=== PATIENT | female | born 2000 | race Caucasian/White ===

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

== ENCOUNTER 2020-08-02 12:57 | Outpatient (CLI) | payer MEDICAID | END 2020-08-02 12:58 | disposition home or self-care (01) | LOC: COV 12:57 | PROVIDERS: ATTEND Family Medicine | DX: U07.1 COVID-19 (principal) ==

== ENCOUNTER 2020-12-23 14:48 | Observation (INO) | payer MEDICAID ==
--- NOTE | 2020-12-23 15:14 | ED Physician Documentation ---
History of Present Illness - Stated complaint Stated Complaint: LETHARGY,DIZZY,FAST HR - Chief complaint Chief Complaint: Neuro - Additonal information Additional information: 20-year-old female presents emergency department for evaluation of melanoma syncope tachycardia and fatigue. She reports that for the last 3 days she has been having black stools. This morning she did faint. She was seen in the local walk-in clinic where screening hemoglobin was shown to be 5.7. Patient denies a history of heavy menstrual cycles. No menstrual cycle for 3 months. No history of previous GI bleeding. Does not take NSAIDs daily. No excessive alcohol use. Review of Systems Constitutional: denies: Fever, Chills Eyes: reports: Reviewed and negative Ears: reports: Reviewed and negative Nose: reports: Reviewed and negative Throat: reports: Reviewed and negative Cardiac: denies: Chest pain / pressure, Palpitations Respiratory: denies: Dyspnea GI: reports: Bloody / black stool. denies: Abdominal Pain, Nausea, Vomiting : denies: Dysuria, Frequency, Hesitancy Skin: denies: Rash, Lesions PD PAST MEDICAL HISTORY - Past Medical History Cardiovascular: None Respiratory: None Neuro: None Endocrine/Autoimmune: None GI: None ENGLISH TUTOR: None : None HEENT: None Psych: None Musculoskeletal: None - Past Surgical History Past Surgical History: No - Present Medications Home Medications: Ambulatory Orders Medication Instructions Recorded Confirmed Famotidine [Pepcid] 20 mg PO BID #60 tablet 04/26/18 Ondansetron Odt [Zofran] 4 mg TL Q6H PRN #10 tablet 04/26/18 - Allergies Allergies/Adverse Reactions: Allergies Allergy/AdvReac Type Severity Reaction Status Date / Time Latex, Natural Rubber Allergy Hives Verified 12/23/20 14:58 nickel Allergy Hives Verified 12/23/20 14:58 - Social History Does the pt smoke?: No Smoking Status: Never smoker Does the pt drink ETOH?: No Does the pt have substance abuse?: No - Immunizations Immunizations are current?: Yes PD ED PE EXPANDED - General General: Alert. No: No acute distress, Well developed/nourished - Neck Neck: Supple w/out meningeal sx. No: Adenopathy - Cardiac Cardiac: Tachy, Radial strong equal, Pedal strong equal, Cap refill < 2 sec. No: Murmur Present - Respiratory Respiratory: Clear to ausultation kuldeep. No: Distress, Labored - Abdomen Abdomen: Normal Bowel sounds. 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 No: Petecchiae, Purpura - Neuro Neuro: Alert and Oriented X 3, CNII-XII intact. No: Confused, Disoriented Results - Vitals Vitals: Vital Signs - 24 hr 12/23/20 12/23/20 14:55 16:04 Temperature 36.7 C 36.8 C Heart Rate 126 H 94 Respiratory 16 20 Rate Blood Pressure 115/62 105/61 O2 Saturation 100 100 Oxygen O2 Source Room air - EKG (time done) 1503 Rate: Rate (enter#) (109) Rhythm: Sinus tachycardia [place]: Normal Intervals: Normal MO QRS: Normal Ischemia: Normal ST segments Compare to prior EKG: Old EKG unavailable Computer interpretation: Agree with computer - Labs Labs: Laboratory Tests 12/23/20 12/23/20 12/23/20 15:01 15:01 15:01 WBC 4.8 RBC 2.24 L Hgb 6.1 L* Hct 18.8 L* MCV 83.9 MCH 27.2 MCHC 32.4 RDW 18.2 H Plt Count 388 MPV 9.5 Neut # (Auto) 3.1 Lymph # (Auto) 0.7 L [place] # (Auto) 0.7 Eos # (Auto) 0.1 Baso # (Auto) 0.1 Absolute Nucleated RBC 0.00 Nucleated RBC % 0.0 Sodium 139 Potassium 4.1 Chloride 106 Carbon Dioxide 26 Anion Gap 7.0 BUN 15 Creatinine 0.5 Estimated GFR (MDRD) 157 Glucose 96 Calcium 8.7 Iron 25 L TIBC 337 % Saturation 7 L Transferrin 241 Total Bilirubin 0.4 AST 34 ALT 30 Alkaline Phosphatase 45 Total Protein 5.9 L Albumin 3.3 Globulin 2.6 Albumin/Globulin Ratio 1.3 Lipase 32 HCG, Quant Blood Type O POSITIVE Antibody Screen NEGATIVE Crossmatch IS Only See Detail 12/23/20 15:01 WBC RBC Hgb Hct MCV MCH MCHC RDW Plt Count MPV Neut # (Auto) Lymph # (Auto) [place] # (Auto) Eos # (Auto) Baso # (Auto) Absolute Nucleated RBC Nucleated RBC % Sodium Potassium Chloride Carbon Dioxide Anion Gap BUN Creatinine Estimated GFR (MDRD) Glucose Calcium Iron TIBC % Saturation Transferrin Total Bilirubin AST ALT Alkaline Phosphatase Total Protein Albumin Globulin Albumin/Globulin Ratio Lipase HCG, Quant < 0.60 Blood Type Antibody Screen Crossmatch IS Only PD MEDICAL DECISION MAKING - ED course Complexity details: reviewed results, re-evaluated patient, d/w patient ED course: 20-year-old female presents the emergency department for evaluation of syncope feeling lightheaded melena for the last 3 days. She was noted to have significant anemia at an outpatient clinic this afternoon and was therefore referred to the emergency department. Here she does have an hemoglobin of 6.1. no thrombocytopenia. I did attempt a stool guaiac but her rectal vault was empty. Screening labs do indicate some mild iron deficiency however this would not explain the acute hemoglobin loss. I discussed this case with And show to her admitting hospitalist to bring agrees to bring her in on an observation status. I have initialized the first unit of PRBC transfusion here in the emergency department Departure - Departure Disposition: ED Place in Observation Clinical Impression: Anemia Qualifiers: Anemia type: unspecified type Qualified Code(s): D64.9 - Anemia, unspecified Syncope Qualifiers: Syncope type: unspecified Qualified Code(s): R55 - Syncope and collapse Condition: Stable Record reviewed to determine appropriate education?: Yes
[2020-12-23 15:24] LABS: BASOPHILS # (AUTO) 0.1 10^3/uL (0.0-0.1); BASOPHILS % (AUTO) 1.1 %; EOSINOPHILS # (AUTO) 0.1 10^3/uL (0.0-0.7); EOSINOPHILS % (AUTO) 2.3 %; LYMPHOCYTES # (AUTO) 0.7 10^3/uL (1.5-3.5); LYMPHOCYTES % (AUTO) 15.3 %; MEAN CORPUSCULAR HEMOGLOBIN 27.2 pg (27.0-31.0); MEAN CORPUSCULAR HGB CONC 32.4 g/dL (32.0-36.0); MEAN CORPUSCULAR VOLUME 83.9 fL (81.0-99.0); MEAN PLATELET VOLUME 9.5 fL (7.9-10.8); MONOCYTES # (AUTO) 0.7 10^3/uL (0.0-1.0); MONOCYTES % (AUTO) 15.1 %; NEUTROPHILS # (AUTO) 3.1 10^3/uL (1.5-6.6); NEUTROPHILS % (AUTO) 65.8 %; PLT - PLATELET COUNT 388 10^3/uL (130-450); RED BLOOD COUNT 2.24 10^6/uL (4.20-5.40); RED CELL DISTRIBUTION WIDTH 18.2 % (12.0-15.0); WHITE BLOOD COUNT 4.8 x10^3/uL (4.8-10.8)
[2020-12-23 15:30] LABS: HGB - HEMOGLOBIN 6.1 g/dL (12.0-16.0)
[2020-12-23 15:31] LABS: HCT - HEMATOCRIT 18.8 % (37.0-47.0)
[2020-12-23 16:02] LABS: ALBUMIN 3.3 g/dL (3.2-5.5); ALBUMIN/GLOBULIN RATIO 1.3 (1.0-2.2); BILIRUBIN,TOTAL 0.4 mg/dL (0.2-1.0); CALCIUM 8.7 mg/dL (8.5-10.3); CREATININE 0.5 mg/dL (0.4-1.0); POTASSIUM 4.1 mmol/L (3.5-5.0); TOTAL PROTEIN 5.9 g/dL (6.7-8.2)
[2020-12-23] MEDS ORDERED: SODIUM CHLORIDE FLUSH 0.9% 10 ML SYRINGE IVP PRN (16:10)
[2020-12-23] MEDS ORDERED: ONDANSETRON 4 MG/2 ML VIAL IVP PRN (16:10)
[2020-12-23 16:11] LABS: BILIRUBIN,URINE NEGATIVE (NEGATIVE); GLUCOSE, URINE (UA) NEGATIVE (NEGATIVE); KETONES,URINE (UA) NEGATIVE (NEGATIVE); LEUKOCYTE ESTERASE, URINE NEGATIVE (NEGATIVE); NITRITE,URINE NEGATIVE (NEGATIVE); OCCULT BLOOD,URINE NEGATIVE (NEGATIVE); PH,URINE 5.5 PH (5.0-7.5); PROTEIN,URINE NEGATIVE (NEGATIVE); UROBILINOGEN,URINE 0.2 (NORMAL) E.U./dL (NORMAL)
[2020-12-23 16:16] LABS: CLARITY,URINE CLEAR (CLEAR)
--- NOTE | 2020-12-23 16:20 | HISTORY & PHYSICAL EXAMINATION ---
Chief Complaint - Chief Complaint Chief Complaint: black tarry stools, anemia History of Present Illness - Admitted From Admitted From:: [facility] ED - History Obtained From Records Reviewed: yes History obtained from: patient - History of Present Illness HPI Comment/Other: Alvarado is a 20-year-old female with no significant medical history who presented to the ED today with anemia. She has been dizzy and fatigue for the past 2 days so she went to a Walk in Clinic Was advised to go to the emergency department for further work-up. She also reports passing out this morning when she woke up. It was a witnessed event. She did not hit her head. She has been having black tarry stools for the past 3 days. She denies previous occurrence. She does not use NSAIDs regularly and does not consume alcohol. She denies having a menstrual period for few months now. In the ED work-up included a CBC which showed a hemoglobin of 6.1. She denied chest pain, dyspnea, abdominal pain, nausea, vomiting, fever or chills. She reports heartburn. As a result of her presentation, she is being admitted for further treatment and work-up. 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 Social History Notes: She lives with her significant other. She vapes. She also uses marijuana. She does not consume alcohol. She is independent of activities of daily living. - POLST Patient has POLST: No POLST Status: Full Code Meds/Allgy - Home Medications Home Medications: Ambulatory Orders Medication Instructions Recorded Confirmed Famotidine [Pepcid] 20 mg PO BID #60 tablet 04/26/18 Ondansetron Odt [Zofran] 4 mg TL Q6H PRN #10 tablet 04/26/18 - Allergies Allergies/Adverse Reactions: Allergies Allergy/AdvReac Type Severity Reaction Status Date / Time Latex, Natural Rubber Allergy Hives Verified 12/23/20 14:58 nickel Allergy Hives Verified 12/23/20 14:58 Review of Systems - Constitutional Constitutional: reports: Fatigue, Weakness. denies: Fever, Chills, Poor appetite - Eyes Eyes: denies: Pain, Vision loss - Ears, Nose & Throat Ears, Nose & Throat: denies: Ear pain, Sore throat - Cardiovascular Cariovascular: reports: Lightheadedness, Syncope. denies: Irregular heart rate, Palpitations, Chest pain, Edema, Exertional dyspnea, Decr. exercise tolerance - Respiratory Respiratory: denies: Cough, Sputum production, Wheezing, SOB at rest, SOB with exertion - Gastrointestinal Gastrointestinal: reports: Black stools. denies: Abdominal pain, Abdominal distention, Constipation, Diarrhea, Nausea, Vomiting, Coffee grounds emesis, Reflux/heartburn, Poor appetite - Genitourinary Genitourinary: denies: Dysuria, Frequency, Urgency, Hematuria, Incontinence, Flank pain - Musculoskeletal Musculoskeletal: denies: Muscle pain, Back pain, Muscle aches, Stiffness - Integumentary Integumentary: denies: Rash, Pruritis, Lesions - Neurological Neurological: reports: General weakness. denies: Focal weakness, Headache - Psychiatric Psychiatric: denies: Depression, Anxiety - Endocrine Endocrine: denies: Polyuria, Polydypsia - Hematologic/Lymphatic Hematologic/Lymphatic: reports: Anemia. denies: Bruising, Petechiae Prior Level of Functionality: Patient is normally independent of activities of daily living Exam - Vital Signs Vital Signs: Vital Signs x48h Temp Pulse Resp BP Pulse Ox 12/23/20 16:04 36.8 C 94 20 105/61 100 12/23/20 14:55 36.7 C 126 H 16 115/62 100 - Physical Exam General Appearance: positive: Alert. negative: No acute distress Eyes Bilateral: positive: PERRL, EOMI ENT: positive: No signs of dehydration Neck: positive: No JVD, Trachea midline Respiratory: positive: Chest non-tender, No respiratory distress, Breath sounds nml. negative: Wheezes, Rales, Rhonchi Cardiovascular: positive: Regular rate & rhythm, No murmur Abdomen: positive: Non-tender, No organomegaly, Nml bowel sounds, No distention. negative: Guarding, Rebound Back: positive: Nml inspection Skin: positive: Color nml, No rash, Warm, Dry Extremities: positive: Non-tender, Full ROM, Nml appearance, No pedal edema Neurologic/Psychiatric: positive: Oriented x3, Motor nml, Mood/affect nml Conclusion/Plan - Problem List (1) Anemia Conclusion/Plan: Likely secondary to upper GI bleed. Patient has been having dark tarry stools for a period of time. Hemoglobin today was 6.1. We will transfuse 2 units of packed red blood cells. Clear liquid diet. N.p.o. after midnight. General surgery: Dr. Nath consulted for possible EGD. Protonix 40 mg IV twice daily. Iron level 25. TIBC 337. Percentage saturation 7. Transferrin 241. Patient would need supplemental iron upon discharge. Qualifiers: Anemia type: unspecified type Qualified Code(s): D64.9 - Anemia, unspecified (2) Upper GI bleed Conclusion/Plan: Suspected. Etiology undetermined. Patient denied use of NSAIDs or heavy alcohol con sumption. Patient has been having dark tarry stools for a period of time. Hemoglobin today was 6.1. We will transfuse 2 units of packed red blood cells. Clear liquid diet. N.p.o. after midnight. General surgery: Dr. Nath consulted for possible EGD. Protonix 40 mg IV twice daily. - Lab Results Fish Bones: 12/23/20 15:01 12/23/20 15:01 Core Measures - Anticipated LOS I expect patient to be DC'd or transferred within 96 hours.: Yes - DVT/VTE - Prophylaxis VTE/DVT Device ordered at admit?: Yes VTE/DVT Prophylaxis med ordered at admit?: No
[2020-12-23] MEDS: SODIUM CHLORIDE FLUSH 0.9% 10 ML SYRINGE IVP SCH (17:31)
[2020-12-23] MEDS: PANTOPRAZOLE 40 MG VIAL IVP SCH ×2 (17:31→21:50)
[2020-12-23 19:47] LABS: B. PARAPERTUSSIS- RESP PCR PAN NOT DETECTED; B. PERTUSSIS- RESP PCR PANEL NOT DETECTED; C. PNEUMONIAE- RESP PCR PANEL NOT DETECTED; CORONAVIRUS 229E-RESP PCR NOT DETECTED; CORONAVIRUS HKU1-RESP PCR NOT DETECTED; CORONAVIRUS NL63-RESP PCR NOT DETECTED; CORONAVIRUS OC43-RESP PCR NOT DETECTED; HUMAN METAPNEUMOVIRUS NOT DETECTED; INFLUENZA A- RESP PCR PANEL NOT DETECTED; INFLUENZA B - RESP PCR PANEL NOT DETECTED; M. PNEUMONIAE- RESP PCR PANEL NOT DETECTED; PARAINFLUENZA VIRUS 1 NOT DETECTED; PARAINFLUENZA VIRUS 2 NOT DETECTED; PARAINFLUENZA VIRUS 3 NOT DETECTED; PARAINFLUENZA VIRUS 4 NOT DETECTED; RHINOVIRUS/ENTEROVIRUS NOT DETECTED; RSV- RESP PCR PANEL NOT DETECTED; SARS-CoV-2 -RESP PCR PANEL NOT DETECTED
[2020-12-23] MEDS: SODIUM CHLORIDE 0.9% 1,000 ML IV SCH (21:50)
[2020-12-24] MEDS: SODIUM CHLORIDE FLUSH 0.9% 10 ML SYRINGE IVP SCH ×3 (00:18→17:25)
[2020-12-24 05:21] LABS: BASOPHILS % (AUTO) 1.1 %; EOSINOPHILS # (AUTO) 0.1 10^3/uL (0.0-0.7); HCT - HEMATOCRIT 24.1 % (37.0-47.0); HGB - HEMOGLOBIN 7.8 g/dL (12.0-16.0); LYMPHOCYTES # (AUTO) 0.8 10^3/uL (1.5-3.5); LYMPHOCYTES % (AUTO) 23.6 %; MEAN CORPUSCULAR HEMOGLOBIN 25.6 pg (27.0-31.0); MEAN CORPUSCULAR HGB CONC 32.4 g/dL (32.0-36.0); MEAN PLATELET VOLUME 9.4 fL (7.9-10.8); MONOCYTES # (AUTO) 0.5 10^3/uL (0.0-1.0); MONOCYTES % (AUTO) 13.9 %; NEUTROPHILS % (AUTO) 57.1 %; PLT - PLATELET COUNT 290 10^3/uL (130-450); RED BLOOD COUNT 3.05 10^6/uL (4.20-5.40); RED CELL DISTRIBUTION WIDTH 18.3 % (12.0-15.0); WHITE BLOOD COUNT 3.5 x10^3/uL (4.8-10.8)
[2020-12-24 05:31] LABS: CREATININE 0.4 mg/dL (0.4-1.0); POTASSIUM 3.8 mmol/L (3.5-5.0)
--- NOTE | 2020-12-24 07:34 | PROVIDER PROGRESS NOTE ---
Assessment/Plan - Problem List (1) Anemia Qualifiers: Anemia type: unspecified type Qualified Code(s): D64.9 - Anemia, unspecified - Current Meds Current Meds: Current Medications Generic Name Dose Route Start Last Admin Trade Name Freq PRN Reason Stop Dose Admin Sodium Chloride 1,000 mls @ 100 mls/hr 12/23/20 17:00 12/23/20 21:50 Normal Saline 0.9% IV 100 mls/hr .Q10H LUCÍA Administration Pantoprazole Sodium 40 mg 12/23/20 16:14 12/23/20 21:50 Pantoprazole 40 Mg Vial IVP 40 mg BID LUCÍA Administration Sodium Chloride 10 ml 12/23/20 16:10 12/23/20 22:05 Sodium Chloride Flush 0.9% 10 Ml Syringe IVP 10 ml PRN PRN Administration NEEDED PER PROVIDER ORDERS Sodium Chloride 10 ml 12/23/20 17:00 12/24/20 00:18 Sodium Chloride Flush 0.9% 10 Ml Syringe IVP 10 ml 0100,0900,1700 LUCÍA Administration - Lab Result Fish Bone Diagrams: 12/24/20 05:14 12/24/20 05:14 - Additional Planning My Orders: My Active Orders 12/23/20 16:10 Activity Orders [RC] Q2HR IO [RC] IOSHIFT Initiate Bowel Care Protocol [RC] .protocol Initiate Line Care Protocol [RC] QSHIFT Initiate Personal Care Protoco [RC] .protocol Oxygen Therapy [RC] .PRN Telemetry- [RC] Q4HR Vital Signs [RC] Q4HR Ondansetron Inj [Zofran Inj] 4 mg IVP Q6HR PRN Sodium Chloride Flush 0.9% [Normal Saline Flush 0.9%] 10 ml IVP PRN PRN Code Status [OTHERS] Routine Condition of Patient [OTHERS] Routine DVT Prophylaxis [OTHERS] Routine 12/23/20 16:13 SCDs [RC] QSHIFT 12/23/20 16:14 Pantoprazole [Protonix] 40 mg IVP BID 12/23/20 16:16 Consult [General Surgery Consult] [CONS] Routine 12/23/20 17:00 Sodium Chloride 0.9% [Normal Saline 0.9%] 1,000 ml IV 100 mls/hr Sodium Chloride Flush 0.9% [Normal Saline Flush 0.9%] 10 ml IVP 0100,0900,1700 12/24/20 00:01 NPO except Meds [DIET] 12/24/20 13:00 CBC - COMP BLD CT W/AUTO DIFF [HEME] Timed 12/25/20 05:00 BMP - BASIC METABOLIC PANEL [CHEM] DAILYLAB CBC - COMP BLD CT W/AUTO DIFF [HEME] DAILYLAB 12/26/20 05:00 BMP - BASIC METABOLIC PANEL [CHEM] DAILYLAB CBC - COMP BLD CT W/AUTO DIFF [HEME] DAILYLAB Objective Vital Signs: Vital Signs - 24 hr 12/23/20 12/23/20 12/23/20 14:55 16:04 16:26 Temperature 36.7 C 36.8 C 36.6 C Heart Rate 126 H 94 99 Heart Rate [ Brachial] Respiratory 16 20 24 Rate Blood Pressure 115/62 105/61 105/61 Blood Pressure [Right Brachial artery] O2 Saturation 100 100 12/23/20 12/23/20 12/23/20 16:38 16:45 17:31 Temperature 36.7 C 36.7 C 36.6 C Heart Rate 95 99 Heart Rate [ 93 Brachial] Respiratory 20 16 18 Rate Blood Pressure 104/53 L 104/54 L Blood Pressure 107/52 L [Right Brachial artery] O2 Saturation 100 12/23/20 12/23/20 12/23/20 18:36 18:56 19:11 Temperature 36.7 C 36.9 C 36.8 C Heart Rate 99 79 88 Heart Rate [ Brachial] Respiratory 17 18 18 Rate Blood Pressure 99/43 L 109/51 L 99/52 L Blood Pressure [Right Brachial artery] O2 Saturation 12/23/20 12/23/20 12/24/20 19:45 21:58 00:20 Temperature 36.7 C 36.7 C 36.5 C Heart Rate 88 79 Heart Rate [ 76 Brachial] Respiratory 18 17 18 Rate Blood Pressure 102/47 L Blood Pressure 96/46 L [Right Brachial artery] O2 Saturation 100 99 12/24/20 05:00 Temperature 36.4 C L Heart Rate Heart Rate [ 64 Brachial] Respiratory 16 Rate Blood Pressure Blood Pressure 98/55 L [Right Brachial artery] O2 Saturation 99 Oxygen O2 Source Room air I&O (Last 24 Hrs): Intake and Output Totals x24h 12/22/20 12/23/2012/24/21 23:59 23:59 23:59 Intake Total 1070 Balance 1070 - Results Results: Laboratory Results WBC 3.5 x10^3/uL (4.8-10.8) L 12/24/20 05:14 RBC 3.05 10^6/uL (4.20-5.40) L 12/24/20 05:14 Hgb 7.8 g/dL (12.0-16.0) L 12/24/20 05:14 Hct 24.1 % (37.0-47.0) L 12/24/20 05:14 MCV 79.0 fL (81.0-99.0) L 12/24/20 05:14 MCH 25.6 pg (27.0-31.0) L 12/24/20 05:14 MCHC 32.4 g/dL (32.0-36.0) 12/24/20 05:14 RDW 18.3 % (12.0-15.0) H 12/24/20 05:14 Plt Count 290 10^3/uL (130-450) 12/24/20 05:14 MPV 9.4 fL (7.9-10.8) 12/24/20 05:14 Neut # (Auto) 2.0 10^3/uL (1.5-6.6) 12/24/20 05:14 Lymph # (Auto) 0.8 10^3/uL (1.5-3.5) L 12/24/20 05:14 [place] # (Auto) 0.5 10^3/uL (0.0-1.0) 12/24/20 05:14 Eos # (Auto) 0.1 10^3/uL (0.0-0.7) 12/24/20 05:14 Baso # (Auto) 0.0 10^3/uL (0.0-0.1) 12/24/20 05:14 Absolute Nucleated RBC 0.00 x10^3/uL 12/24/20 05:14 Nucleated RBC % 0.0 /100WBC 12/24/20 05:14 Sodium 137 mmol/L (135-145) 12/24/20 05:14 Potassium 3.8 mmol/L (3.5-5.0) 12/24/20 05:14 Chloride 109 mmol/L (101-111) 12/24/20 05:14 Carbon Dioxide 23 mmol/L (21-32) 12/24/20 05:14 Anion Gap 5.0 (6-13) L 12/24/20 05:14 BUN 12 mg/dL (6-20) 12/24/20 05:14 Creatinine 0.4 mg/dL (0.4-1.0) 12/24/20 05:14 Estimated GFR (MDRD) 203 (>89) 12/24/20 05:14 Glucose 89 mg/dL (70-100) 12/24/20 05:14 Calcium 8.0 mg/dL (8.5-10.3) L 12/24/20 05:14 Iron 25 ug/dL (28-170) L 12/23/20 15:01 TIBC 337 ug/dL (250-450) 12/23/20 15:01 % Saturation 7 % (20-50) L 12/23/20 15:01 Transferrin 241 mg/dL (192-382) 12/23/20 15:01 Total Bilirubin 0.4 mg/dL (0.2-1.0) 12/23/20 15:01 AST 34 IU/L (10-42) 12/23/20 15:01 ALT 30 IU/L (10-60) 12/23/20 15:01 Alkaline Phosphatase 45 IU/L (42-121) 12/23/20 15:01 Total Protein 5.9 g/dL (6.7-8.2) L 12/23/20 15:01 Albumin 3.3 g/dL (3.2-5.5) 12/23/20 15:01 Globulin 2.6 g/dL (2.1-4.2) 12/23/20 15:01 Albumin/Globulin Ratio 1.3 (1.0-2.2) 12/23/20 15:01 Lipase 32 U/L (22-51) 12/23/20 15:01 HCG, Quant < 0.60 mIU/mL 12/23/20 15:01 Urine Color YELLOW 12/23/20 15:57 Urine Clarity CLEAR (CLEAR) 12/23/20 15:57 Urine pH 5.5 PH (5.0-7.5) 12/23/20 15:57 Ur Specific [place] >=1.030 (1.002-1.030) H 12/23/20 15:57 Urine Protein NEGATIVE mg/dL (NEGATIVE) 12/23/20 15:57 Urine Glucose (UA) NEGATIVE mg/dL (NEGATIVE) 12/23/20 15:57 Urine Ketones NEGATIVE mg/dL (NEGATIVE) 12/23/20 15:57 Urine Occult Blood NEGATIVE (NEGATIVE) 12/23/20 15:57 Urine Nitrite NEGATIVE (NEGATIVE) 12/23/20 15:57 Urine Bilirubin NEGATIVE (NEGATIVE) 12/23/20 15:57 Urine Urobilinogen 0.2 (NORMAL) E.U./dL (NORMAL) 12/23/20 15:57 Ur Leukocyte Esterase NEGATIVE (NEGATIVE) 12/23/20 15:57 Ur Microscopic Review NOT INDICATED 12/23/20 15:57 Urine Culture Comments NOT INDICATED 12/23/20 15:57 Nasal Adenovirus (PCR) NOT DETECTED 12/23/20 18:45 Nasal B. parapertussis DNA (PCR) NOT DETECTED 12/23/20 18:45 Nasal Coronavir 229E PCR NOT DETECTED 12/23/20 18:45 Nasal Coronavir HKU1 PCR NOT DETECTED 12/23/20 18:45 Nasal Coronavir NL63 PCR NOT DETECTED 12/23/20 18:45 Nasal Coronavir OC43 PCR NOT DETECTED 12/23/20 18:45 Nasal Enterovir/Rhinovir PCR NOT DETECTED 12/23/20 18:45 Nasal Influenza B PCR NOT DETECTED 12/23/20 18:45 Nasal Influenza A PCR NOT DETECTED 12/23/20 18:45 Nasal Parainfluen 1 PCR NOT DETECTED 12/23/20 18:45 Nasal Parainfluen 2 PCR NOT DETECTED 12/23/20 18:45 Nasal Parainfluen 3 PCR NOT DETECTED 12/23/20 18:45 Nasal Parainfluen 4 PCR NOT DETECTED 12/23/20 18:45 Nasal RSV (PCR) NOT DETECTED 12/23/20 18:45 Nasal B.pertussis DNA PCR NOT DETECTED 12/23/20 18:45 Nasal C.pneumoniae (PCR) NOT DETECTED 12/23/20 18:45 Kb Human Metapneumo PCR NOT DETECTED 12/23/20 18:45 Nasal M.pneumoniae (PCR) NOT DETECTED 12/23/20 18:45 Nasal SARS-CoV-2 (PCR) NOT DETECTED 12/23/20 18:45 Blood Type O POSITIVE 12/23/20 15:01 Blood Type Recheck O POSITIVE 12/23/20 15:41 Antibody Screen NEGATIVE 12/23/20 15:01 Crossmatch IS Only See Detail 12/23/20 15:01
[2020-12-24] MEDS: SODIUM CHLORIDE 0.9% 1,000 ML IV SCH ×2 (07:41→15:51)
[2020-12-24] MEDS: PANTOPRAZOLE 40 MG VIAL IVP SCH (09:51)
--- NOTE | 2020-12-24 10:47 | DISCHARGE SUMMARY ---
Discharge Summary Admit Date: 12/23/20 Discharge Date: 12/24/20 Discharging Provider: Sarah Garcia Primary Care Provider: Lida Amezcua Code Status: Attempt Resuscitation Condition at Discharge: Stable Discharge Disposition: 01 Home, Self Care - DIAGNOSES Admission Diagnoses: Anemia Upper GI bleed Discharge Diagnoses with Status of Each Condition: Anemia: Status post transfusion of 3 units of packed red blood cells. Upper GI bleed: Suspected. Patient to follow-up with general surgery in the outpatient setting for an EGD. - HPI History of Present Illness: Per HPI: Patient is a 20-year-old female with no significant medical history who presented to the ED today with anemia. She has been dizzy and fatigue for the past 2 days so she went to a Walk in Clinic Was advised to go to the emergency department for further work-up. She also reports passing out this morning when she woke up. It was a witnessed event. She did not hit her head. She has been having black tarry stools for the past 3 days. She denies previous occurrence. She does not use NSAIDs regularly and does not consume alcohol. She denies having a menstrual period for few months now. In the ED work-up included a CBC which showed a hemoglobin of 6.1. She denied chest pain, dyspnea, abdominal pain, nausea, vomiting, fever or chills. She reports heartburn. As a result of her presentation, she is being admitted for further treatment and work-up. Through the course of her hospital stay she did not have any bowel movement. She was transfused 2 units of packed red blood cells which improved her hemoglob in to 7.8. She received a 3rd unit of packed red blood cells the following day. Her hemoglobin was 10.4 by the time of discharge. Dr. Davon Nath with general surgery has been consulted. He recommended discharging the patient on Protonix 40 mg p.o. twice daily after transfusion is completed and for the patient to follow-up with him next week in the outpatient clinic for EGD. The patient was informed of this plan. She would need to see her primary care physician Kenyetta Amezcua as soon as possi ble for a referral to general surgery for the EGD. She will be prescribed Protonix 40 mg p.o. twice daily x14 days. She will be prescribed iron supplement to take twice daily. The rest of her stay was unremarkable. - ALLERGIES Allergies/Adverse Reactions: Allergies Allergy/AdvReac Type Severity Reaction Status Date / Time Latex, Natural Rubber Allergy Hives Verified 12/23/20 14:58 nickel Allergy Hives Verified 12/23/20 14:58 - MEDICATIONS Home Medications: Ambulatory Orders Medication Instructions Recorded Confirmed Famotidine [Pepcid] 20 mg PO BID #60 tablet 04/26/18 Ondansetron Odt [Zofran Odt] 4 mg TL Q6H PRN #10 tablet 04/26/18 Ferrous Gluconate 324 mg PO BID 30 Days #60 tablet 12/24/20 Pantoprazole [Protonix] 40 mg PO BID 14 Days #28 tablet 12/24/20 - PHYSICAL EXAM AT DISCHARGE General Appearance: positive: No acute distress, Alert Eyes Bilateral: positive: PERRL, EOMI ENT: positive: No signs of dehydration Neck: positive: No JVD, Trachea midline Respiratory: positive: Chest non-tender, No respiratory distress, Breath sounds nml. negative: Wheezes, Rales, Rhonchi Cardiovascular: positive: Regular rate & rhythm, No murmur Abdomen: positive: Non-tender, No organomegaly, Nml bowel sounds, No distention. negative: Guarding, Rebound Skin: positive: No rash, Warm, Dry, Pallor Extremities: positive: Non-tender, Full ROM, Nml appearance, No pedal edema Neurologic/Psychiatric: positive: Oriented x3, Mood/affect nml - LABS Result Diagrams: 12/24/20 13:57 12/24/20 05:14 - TIME SPENT Time Spent in Discharge (Minutes): 20
--- NOTE | 2020-12-24 10:48 | Discharge Plan ---
Discharge Plan Problem Reviewed?: Yes Disposition: Home, Self Care Condition: Stable Prescriptions: Ferrous Gluconate 324 mg PO BID 30 Days #60 tablet Pantoprazole [Protonix] 40 mg PO BID 14 Days #28 tablet Diet: Regular Activity Restrictions: Activity as Tolerated Weight Bearing: Full Weight Health Concerns: You were admitted with weakness and dizziness for which work-up showed that you had a hemoglobin of 6.1. You had also been experiencing black tarry stools for which an upper GI bleed is suspected. You were transfused 3 units of packed red blood cells. Your hemoglobin was 10.4 upon discharge During your hospital stay you did not have any more episodes of black tarry stools or other signs of bleeding. You were discharged with instructions to follow-up with your primary care physician as soon as possible to give you a referral for general surgery within the next week. You are to follow-up with general surgery within the next week for an EGD. He was discharged with a prescription of Protonix 40 mg p.o. twice daily for 2 weeks and iron supplement. You expressed understanding of the above plan and are in agreement Plan of Treatment: You were admitted with weakness and dizziness for which work-up showed that you had a hemoglobin of 6.1. You had also been experiencing black tarry stools for which an upper GI bleed is suspected. You were transfused 3 units of packed red blood cells. During your hospital stay you did not have any more episodes of black tarry stools or other signs of bleeding. You were discharged with instructions to follow-up with your primary care physician as soon as possible to give you a referral for general surgery within the next week. You are to follow-up with general surgery within the next week for an EGD. He was discharged with a prescription of Protonix 40 mg p.o. twice daily for 2 weeks and iron supplement. You expressed understanding of the above plan and are in agreement Care Goals: You were admitted with weakness and dizziness for which work-up showed that you had a hemoglobin of 6.1. You had also been experiencing black tarry stools for which an upper GI bleed is suspected. You were transfused 3 units of packed red blood cells. During your hospital stay you did not have any more episodes of black tarry stools or other signs of bleeding. You were discharged with instructions to follow-up with your primary care physician as soon as possible to give you a referral for general surgery within the next week. You are to follow-up with general surgery within the next week for an EGD. He was discharged with a prescription of Protonix 40 mg p.o. twice daily for 2 weeks and iron supplement. You expressed understanding of the above plan and are in agreement Assessment: You were admitted with weakness and dizziness for which work-up showed that you had a hemoglobin of 6.1. You had also been experiencing black tarry stools for which an upper GI bleed is suspected. You were transfused 3 units of packed red blood cells. During your hospital stay you did not have any more episodes of black tarry stools or other signs of bleeding. You were discharged with instructions to follow-up with your primary care physician as soon as possible to give you a referral for general surgery within the next week. You are to follow-up with general surgery within the next week for an EGD. He was discharged with a prescription of Protonix 40 mg p.o. twice daily for 2 weeks and iron supplement. You expressed understanding of the above plan and are in agreement No Smoking: If you smoke, Please STOP! Call for help. Follow-up with: Lida Amezcua ARNP [Primary Care Provider] -
--- NOTE | 2020-12-24 13:37 | HISTORY & PHYSICAL EXAMINATION ---
Chief Complaint - Chief Complaint Chief Complaint: dark stool and feeling faint on admit History of Present Illness - Admitted From Admitted From:: ED - History Obtained From Records Reviewed: yes History obtained from: pt Exam Limitations: none - History of Present Illness HPI Comment/Other: She had 3 days of dark stool and felt faint. Admitted with anemia. She denies taking nsaids, abdominal pain, family history of intestinal disease. 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 - Past Surgical History HEENT: reports: Other (wisdom teeth) - Family & Social History Family History Comment/Other: Father from an HI at the age of 53. Social History Notes: She lives with her significant other. She vapes. She also uses marijuana. She does not consume alcohol. She is independent of activities of daily living. - POLST Patient has POLST: No POLST Status: Full Code Meds/Allgy - Home Medications Home Medications: Ambulatory Orders Medication Instructions Recorded Confirmed Famotidine [Pepcid] 20 mg PO BID #60 tablet 04/26/18 Ondansetron Odt [Zofran Odt] 4 mg TL Q6H PRN #10 tablet 04/26/18 Ferrous Gluconate 324 mg PO BID 30 Days #60 tablet 12/24/20 Pantoprazole [Protonix] 40 mg PO BID 14 Days #28 tablet 12/24/20 - Allergies Allergies/Adverse Reactions: Allergies Allergy/AdvReac Type Severity Reaction Status Date / Time Latex, Natural Rubber Allergy Hives Verified 12/23/20 14:58 nickel Allergy Hives Verified 12/23/20 14:58 Review of Systems - Other Findings Other Findings: 10 pt ros as above otherwise unremarkable Exam - Vital Signs Reviewed Vital Signs: Yes Vital Signs: Vital Signs x48h Temp Pulse Pulse Resp BP BP Pulse Ox 12/24/20 12:26 36.7 C 68 18 105/57 L 100 12/24/20 11:20 36.8 C 70 24 101/55 L 12/24/20 11:01 36.6 C 73 24 105/55 L 12/24/20 07:51 36.5 C 60 20 101/48 L 99 - Physical Exam General Appearance: positive: No acute distress, Alert Eyes Bilateral: positive: PERRL, EOMI ENT: positive: No signs of dehydration Neck: positive: No JVD Respiratory: positive: No respiratory distress Abdomen: positive: Non-tender, No distention Neurologic/Psychiatric: positive: Oriented x3 Conclusion/Plan - Problem List (1) Upper GI bleed Conclusion/Plan: she has been very stable. Agree with present care and plan. If continues to be stable recommend PPI medication x 6 weeks, follow up Primary care provider, check h pylori, follow up surgery and consider outpatient EGD - Lab Results Fish Bones: 12/24/20 05:14 12/24/20 05:14
[2020-12-24 15:45] VITALS: BP 112/53
[2020-12-24 16:03] LABS: HCT - HEMATOCRIT 31.8 % (37.0-47.0); HGB - HEMOGLOBIN 10.8 g/dL (12.0-16.0); MEAN CORPUSCULAR HEMOGLOBIN 26.9 pg (27.0-31.0); MEAN CORPUSCULAR VOLUME 79.3 fL (81.0-99.0); MEAN PLATELET VOLUME 9.6 fL (7.9-10.8); RED BLOOD COUNT 4.01 10^6/uL (4.20-5.40); RED CELL DISTRIBUTION WIDTH 17.6 % (12.0-15.0); WHITE BLOOD COUNT 4.5 x10^3/uL (4.8-10.8)
== END 2020-12-24 17:30 | disposition home or self-care (01) ==
LOC: ED 14:48 → MS2 16:01
PROVIDERS: ADMIT Internal Medicine; ATTEND Internal Medicine
DX: D64.9 Anemia, unspecified (principal); R19.5 Other fecal abnormalities; Z20.822 Contact with and (suspected) exposure to COVID-19; Z86.16 Personal history of COVID-19; R42 Dizziness and giddiness; R55 Syncope and collapse; R12 Heartburn; F17.290 Nicotine dependence, other tobacco product, uncomplicated; R53.83 Other fatigue
CPT/HCPCS: 0202U; 36415; 36430; 80048; 80053; 81003; 83540; 83690; 84466; 84702; 85025; 85027; 86850; 86900; 86901; 86920; 87635; 96374; 96376; 99284; 99285; G0378; P9016; P9040; 81001; 87086

== ENCOUNTER 2021-01-22 21:24 | Outpatient (CLI) | payer MEDICAID | END 2021-01-22 21:25 | disposition EMS.NT | LOC: EMS 21:24 | DX: F41.9 Anxiety disorder, unspecified (principal) ==

== ENCOUNTER 2021-02-06 11:09 | Emergency (ER) | payer MEDICAID ==
[2021-02-06 12:02] LABS: BASOPHILS # (AUTO) 0.1 10^3/uL (0.0-0.1); BASOPHILS % (AUTO) 1.4 %; EOSINOPHILS # (AUTO) 0.1 10^3/uL (0.0-0.7); EOSINOPHILS % (AUTO) 2.6 %; HCT - HEMATOCRIT 28.7 % (37.0-47.0); HGB - HEMOGLOBIN 8.8 g/dL (12.0-16.0); LYMPHOCYTES # (AUTO) 0.4 10^3/uL (1.5-3.5); LYMPHOCYTES % (AUTO) 12.5 %; MEAN CORPUSCULAR HEMOGLOBIN 25.9 pg (27.0-31.0); MEAN CORPUSCULAR HGB CONC 30.7 g/dL (32.0-36.0); MEAN CORPUSCULAR VOLUME 84.4 fL (81.0-99.0); MEAN PLATELET VOLUME 9.5 fL (7.9-10.8); MONOCYTES # (AUTO) 0.4 10^3/uL (0.0-1.0); MONOCYTES % (AUTO) 12.5 %; NEUTROPHILS # (AUTO) 2.5 10^3/uL (1.5-6.6); NEUTROPHILS % (AUTO) 70.7 %; PLT - PLATELET COUNT 418 10^3/uL (130-450); RED CELL DISTRIBUTION WIDTH 14.5 % (12.0-15.0); WHITE BLOOD COUNT 3.5 x10^3/uL (4.8-10.8)
[2021-02-06 12:11] LABS: ALBUMIN 3.4 g/dL (3.2-5.5); ALBUMIN/GLOBULIN RATIO 1.3 (1.0-2.2); BILIRUBIN,TOTAL 0.5 mg/dL (0.2-1.0); CALCIUM 8.8 mg/dL (8.5-10.3); CREATININE 0.4 mg/dL (0.4-1.0); POTASSIUM 4.3 mmol/L (3.5-5.0); TOTAL PROTEIN 6.1 g/dL (6.7-8.2)
[2021-02-06 13:16] LABS: INR 1.1 (0.8-1.2); PT - PROTHROMBIN TIME 12.6 secs (9.9-12.6)
[2021-02-06 13:23] LABS: PARTIAL THROMBOPLASTIN TIME 28.4 secs (24.9-33.3)
[2021-02-06] MEDS ORDERED: IOVERSOL 320 100 ML VIAL IVP ONE ×2 (13:32→19:37)
[2021-02-06] MEDS ORDERED: methylPREDNISolone SUCCINATE 125 MG/2 ML VIAL IVP STA (13:38)
[2021-02-06] MEDS ORDERED: PANTOPRAZOLE 40 MG VIAL IVP STA (13:38)
[2021-02-06] MEDS ORDERED: MAG HYDROX/AL HYDROX/SIMETH 30 ML UDC PO STA (13:39)
[2021-02-06] MEDS ORDERED: LIDOCAINE VISCOUS 2% 15 ML UDC MM STA (13:39)
[2021-02-06] MEDS ORDERED: SUCRALFATE 1 GM/10 ML UDC PO STA (13:39)
--- NOTE | 2021-02-06 13:56 | ED Physician Documentation ---
PD HPI GI BLEED - Stated complaint Stated Complaint: BLOODY STOOL - Chief complaint Chief Complaint: Abd Pain - History obtained from History obtained from: Patient - History of Present Illness Timing - onset: How many days ago (4) Timing - duration: Days (4) Timing - details: Gradual onset Pain level max: 5 Pain level now: 5 Associated symptoms: Maroon stool, Black/tarry stool, Diarrhea, Abdominal pain (epigastric and occassionally lower abd.). No: Vomiting, Coffee ground emesis, Hematemesis, Constipation, Chest pain Contributing factors: No: Sick contact, Bad food, Travel, Recent antibiotics, Alcohol use, Aspirin use, NSAID use, Stress, Anticoagulated, Diabetes - Additional information Additional information: Patient is a 21-year-old female who states she has had 3 to 4 days of diarrhea with dark blood in the stool. Nothing makes it better or worse. She had similar symptoms about 2 months ago when she was admitted for anemia. She was supposed to be referred for an endoscopy, but the referral is not until next month. She states that she has had decreased ability to eat as when she eats she has stomach pain. She has not been taking her medications because she says that her stomach hurts. She states that she is supposed to be on iron, but has not taken it secondary to stomach pain. Denies any possibility of . No history of inflammatory bowel disease. Nothing makes it better. Worse with eating. Denies any alcohol, caffeine, NSAIDs. 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 : None HEENT: None Psych: None Musculoskeletal: None - Past Surgical History Past Surgical History: No HEENT: Other (wisdom teeth) - Present Medications Home Medications: Ambulatory Orders Medication Instructions Recorded Confirmed Famotidine [Pepcid] 20 mg PO BID #60 tablet 04/26/18 Ondansetron Odt [Zofran Odt] 4 mg TL Q6H PRN #10 tablet 04/26/18 Ferrous Gluconate 324 mg PO BID 30 Days #60 tablet 12/24/20 Pantoprazole [Protonix] 40 mg PO BID 14 Days #28 tablet 12/24/20 Pantoprazole [Protonix] 40 mg PO BID 30 Days #60 tablet 12/24/20 Esomeprazole Magnesium [Nexium] 40 mg PO DAILY #30 cap 02/06/21 Famotidine [Pepcid] 20 mg PO BID #60 tablet 02/06/21 HYDROcod/ACETAM 5/325 [[place] 5/325] 1 - 2 ea PO Q6H PRN #14 tablet 02/06/21 Sucralfate [Carafate] 1 gm PO ACHS #60 tablet 02/06/21 predniSONE [Deltasone] 10 mg PO [id number] #42 tab 02/06/21 - Allergies Allergies/Adverse Reactions: Allergies Allergy/AdvReac Type Severity Reaction Status Date / Time Latex, Natural Rubber Allergy Hives Verified 02/06/21 11:41 nickel Allergy Hives Verified 02/06/21 11:41 - Social History Does the pt smoke?: No Smoking Status: Never smoker Does the pt drink ETOH?: No Does the pt have substance abuse?: No - Immunizations Immunizations are current?: Yes - POLST Patient has POLST: No POLST Status: Full Code PD ED PE NORMAL - Vitals Vital signs reviewed: Yes - General General: Alert and oriented X 3, No acute distress, Well developed/nourished - HEENT HEENT: PERRL, Moist mucous membranes - Neck Neck: Supple, no meningeal sign - Cardiac Cardiac: RRR, Strong equal pulses - Respiratory Respiratory: No respiratory distress, Clear bilaterally - Abdomen Abdomen: Soft, Non distended, Other (Mild tenderness to palpation right lower quadrant and epigastric. No peritoneal signs.) - Derm Derm: Warm and dry - Extremities Extremities: No edema - Neuro Neuro: Alert and oriented X 3 - Psych Psych: Normal mood, Normal affect Results - Vitals Vitals: Vital Signs - 24 hr 02/06/21 02/06/21 02/06/21 11:39 13:41 15:00 Temperature 36.4 C L Heart Rate 101 H 74 79 Respiratory 16 18 15 Rate Blood Pressure 106/68 106/51 L 104/68 O2 Saturation 98 100 99 02/06/21 16:14 Temperature Heart Rate 78 Respiratory 18 Rate Blood Pressure 110/60 O2 Saturation 100 Oxygen O2 Source Room air - Labs Labs: Laboratory Tests 02/06/21 02/06/21 02/06/21 11:54 11:54 13:03 WBC 3.5 L RBC 3.40 L Hgb 8.8 L Hct 28.7 L MCV 84.4 MCH 25.9 L MCHC 30.7 L RDW 14.5 Plt Count 418 MPV 9.5 Neut # (Auto) 2.5 Lymph # (Auto) 0.4 L [place] # (Auto) 0.4 Eos # (Auto) 0.1 Baso # (Auto) 0.1 Absolute Nucleated RBC 0.00 Nucleated RBC % 0.0 PT INR APTT Sodium 136 Potassium 4.3 Chloride 102 Carbon Dioxide 26 Anion Gap 8.0 BUN 10 Creatinine 0.4 Estimated GFR (MDRD) 201 Glucose 124 H Calcium 8.8 Total Bilirubin 0.5 AST 25 ALT 23 Alkaline Phosphatase 58 Total Protein 6.1 L Albumin 3.4 Globulin 2.7 Albumin/Globulin Ratio 1.3 Lipase 27 Urine Color Urine Clarity Urine pH Ur Specific [place] Urine Protein Urine Glucose (UA) Urine Ketones Urine Occult Blood Urine Nitrite Urine Bilirubin Urine Urobilinogen Ur Leukocyte Esterase Ur Microscopic Review Urine Culture Comments Urine HCG, Qual Blood Type O POSITIVE Antibody Screen NEGATIVE 02/06/21 02/06/21 13:03 13:54 WBC RBC Hgb Hct MCV MCH MCHC RDW Plt Count MPV Neut # (Auto) Lymph # (Auto) [place] # (Auto) Eos # (Auto) Baso # (Auto) Absolute Nucleated RBC Nucleated RBC % PT 12.6 INR 1.1 APTT 28.4 Sodium Potassium Chloride Carbon Dioxide Anion Gap BUN Creatinine Estimated GFR (MDRD) Glucose Calcium Total Bilirubin AST ALT Alkaline Phosphatase Total Protein Albumin Globulin Albumin/Globulin Ratio Lipase Urine Color YELLOW Urine Clarity CLEAR Urine pH 7.5 Ur Specific [place] 1.020 Urine Protein NEGATIVE Urine Glucose (UA) NEGATIVE Urine Ketones NEGATIVE Urine Occult Blood NEGATIVE Urine Nitrite NEGATIVE Urine Bilirubin NEGATIVE Urine Urobilinogen 1 (NORMAL) Ur Leukocyte Esterase NEGATIVE Ur Microscopic Review NOT INDICATED Urine Culture Comments NOT INDICATED Urine HCG, Qual NEGATIVE Blood Type Antibody Screen - Rads (name of study) CT abdomen and pelvis Radiology: Prelim report reviewed, EMP read contemporaneously, See rad report ( 1. Focal loop of what appears to be sigmoid colonic thickening as described above. Overall appearance is suggestive of colitis which can be secondary to infectious or inflammatory etiology. ) PD MEDICAL DECISION MAKING - ED course Complexity details: reviewed results, re-evaluated patient, considered differential, d/w patient ED course: 21-year-old female with blood in her diarrhea today. Has a history of possible gastritis versus gastric ulcers. Has never received an endoscopy or colonoscopy. Possible inflammatory bowel disease? Does not need a transfusion today. Was given IV Protonix. We will place on a PPI, H2 nikia and steroids for home. We will have her follow-up with GI as scheduled in 2 weeks. Patient is well-appearing, nontoxic. Afebrile. Pain greatly improved with GI cocktail. Patient counseled regarding signs and symptoms for which I believe and urgent re-evaluation would be necessary. Patient with good understanding of and agreement to plan and is comfortable going home at this time This document was made in part using voice recognition software. While efforts are made to proofread this document, sound alike and grammatical errors may occur. Departure - Departure Disposition: 01 Home, Self Care Clinical Impression: Colitis Gastritis Qualifiers: Gastritis type: unspecified gastritis Chronicity: unspecified Gastritis bleeding: presence of bleeding unspecified Qualified Code(s): K29.70 - Gastritis, unspecified, without bleeding Anemia Qualifiers: Anemia type: unspecified type Qualified Code(s): D64.9 - Anemia, unspecified Condition: Good Instructions: Disease Crohn Dc, Colitis Ulcerative Dc, ED PUD Vs Gastritis Follow-Up: Lida Amezcua ARNP [Primary Care Provider] - Within 1 week Prescriptions: Sucralfate [Carafate] 1 gm PO ACHS #60 tablet predniSONE [Deltasone] 10 mg PO [id number] #42 tab Esomeprazole Magnesium [Nexium] 40 mg PO DAILY #30 cap HYDROcod/ACETAM 5/325 [[place] 5/325] 1 - 2 ea PO Q6H PRN #14 tablet PRN Reason: Pain Famotidine [Pepcid] 20 mg PO BID #60 tablet Comments: Follow-up with your doctor for further care. We will start you on several medications for home. Make sure you are eating a very bland diet. Avoid caffeine, energy drinks, spicy foods, fried foods, anti-inflammatory medication such as Motrin and Aleve. It is importantly have an endoscopy and a colonoscopy as you could have a disease such as Crohn's disease or ulcerative colitis causing your symptoms. I am prescribing a short course of narcotic pain medication for you. These are potentially dangerous and addictive medications that should be used carefully. These medications may constipate you. Take an [id number] stool softener (docusate) twice daily with plenty of water while taking these medications. If you go 24 hours without a bowel movement, take [id number] miralax, per package instructions. Do not drink or drive while taking these medications. If you received narcotic or sedating medications while in the emergency department, do not drive for 24 hours. Store this medication in a safe, secure place and out of reach of children. It is a violation of federal law to give or sell this medication to another person or to use in a manner other than prescribed. The ED will not refill narcotic prescriptions, including prescriptions lost or stolen. To dispose of unwanted medications: 1. [facility] at [address] [place] [address] in [place] has a medication drop box. They accept prescription medications (in pill form) Saturday through Saturday 9:00 a.m. to 5:00 p.m. 2. [facility] [employer] accepts prescription medications (in pill form only) for disposal year round. Call for more information. 3. Contact the [facility] for the next [facility] sponsored prescription drug collection event. , [phone], or [phone]; Discharge Date/Time: 02/06/21 16:14
[2021-02-06 14:12] LABS: BILIRUBIN,URINE NEGATIVE (NEGATIVE); GLUCOSE, URINE (UA) NEGATIVE (NEGATIVE); KETONES,URINE (UA) NEGATIVE (NEGATIVE); LEUKOCYTE ESTERASE, URINE NEGATIVE (NEGATIVE); NITRITE,URINE NEGATIVE (NEGATIVE); OCCULT BLOOD,URINE NEGATIVE (NEGATIVE); PH,URINE 7.5 PH (5.0-7.5); PROTEIN,URINE NEGATIVE (NEGATIVE); UROBILINOGEN,URINE 1 (NORMAL) E.U./dL (NORMAL)
[2021-02-06 14:13] LABS: CLARITY,URINE CLEAR (CLEAR); HCG UR QUAL NEGATIVE
--- NOTE | 2021-02-06 15:51 | CT Report ---
PROCEDURE: Abdomen/Pelvis W INDICATIONS: abd pain, hematochezia, diarrhea CONTRAST: IV CONTRAST: Optiray 320 ml: 75 PO CONTRAST: *NO PO CONTRAST TECHNIQUE: After the administration of IV contrast, 5 mm thick sections acquired from the diaphragms to the symp hysis. 5 mm thick coronal and sagittal reformats were acquired. For radiation dose reduction, the f ollowing was used: automated exposure control, adjustment of mA and/or kV according to patient size. COMPARISON: Abdomen ultrasound 03/04/2018 FINDINGS: Image quality: Excellent. ABDOMEN: Lung bases: Lung bases are clear. Heart size is normal. Solid organs: Liver and spleen are normal in size and enhancement. Gallbladder is unremarkable [place] iary system is non dilated. Pancreas enhances normally. No adrenal nodules. Kidneys demonstrate no rmal size and enhancement, without hydronephrosis. Peritoneum and bowel: There is a thickened loop of bowel traversing the lower pelvis appearing to rep resent sigmoid colon. It is partially obscured by overlapping loops of small bowel. There appears to be mild surrounding inflammatory change. No free fluid or air. Nodes and vessels: No retroperitoneal or mesenteric adenopathy by size criteria. Aorta and inferior vena cava are normal in size. Miscellaneous: No ventral hernias. PELVIS: Genitourinary: Bladder wall thickness is normal. Miscellaneous: No inguinal hernias or adenopathy. Bones: No suspicious bony lesions. No vertebral body compression fractures. IMPRESSION: 1. Focal loop of what appears to be sigmoid colonic thickening as described above. Overall appearance is suggestive of colitis which can be secondary to infectious or inflammatory etiology. Reviewed by: Anne Benavides MD on 02/06/2021 3:49 PM PDT Approved by: Anne Benavides MD on 02/06/2021 3:49 PM PDT Station ID: [id number]
[2021-02-06 16:16] VITALS: BP 110/60
== END 2021-02-06 16:14 | disposition home or self-care (01) ==
LOC: ED 11:09
DX: K52.9 Noninfective gastroenteritis and colitis, unspecified (principal); K29.70 Gastritis, unspecified, without bleeding; D64.9 Anemia, unspecified
CPT/HCPCS: 36415; 74177; 80053; 81003; 81025; 83690; 85025; 85610; 85730; 86850; 86900; 86901; 96374; 96375; 99284; A9270; Q9967; 81001; 87086

== ENCOUNTER 2021-02-27 19:52 | Observation (INO) | payer MEDICAID ==
[2021-02-27 20:26] LABS: BASOPHILS % (AUTO) 0.5 %; EOSINOPHILS % (AUTO) 1.1 %; LYMPHOCYTES # (AUTO) 0.5 10^3/uL (1.5-3.5); LYMPHOCYTES % (AUTO) 13.2 %; MEAN CORPUSCULAR HEMOGLOBIN 23.5 pg (27.0-31.0); MEAN CORPUSCULAR HGB CONC 29.3 g/dL (32.0-36.0); MEAN CORPUSCULAR VOLUME 80.4 fL (81.0-99.0); MEAN PLATELET VOLUME 9.2 fL (7.9-10.8); MONOCYTES # (AUTO) 0.6 10^3/uL (0.0-1.0); MONOCYTES % (AUTO) 15.6 %; NEUTROPHILS # (AUTO) 2.5 10^3/uL (1.5-6.6); NEUTROPHILS % (AUTO) 69.3 %; PLT - PLATELET COUNT 305 10^3/uL (130-450); RED BLOOD COUNT 2.04 10^6/uL (4.20-5.40); RED CELL DISTRIBUTION WIDTH 15.8 % (12.0-15.0); WHITE BLOOD COUNT 3.7 x10^3/uL (4.8-10.8)
--- NOTE | 2021-02-27 20:32 | ED Physician Documentation ---
History of Present Illness - Stated complaint Stated Complaint: HIGH HR - Chief complaint Chief Complaint: Cardiac - History obtained from History obtained from: Patient - History of Present Illness Timing: How many days ago (3) Pain level max: 0 Pain level now: 0 - Additonal information Additional information: Patient is a 21-year-old female who presents to the emergency department complaining of tachycardia and palpitations for the past several days. She has also been feeling tired and weak. She was seen at the walk-in clinic today and sent here for evaluation. Worse with exertion, better with rest. She does vape, does not use marijuana. No alcohol. Has not noted any blood in her stool recently. She did have a GI bleed in December of this year. She has not had a colonoscopy or endoscopy since then. She did not have a endoscopy or colonoscopy at that visit. Review of Systems Ten Systems: 10 systems reviewed and negative Constitutional: denies: Fever, Chills Respiratory: denies: Dyspnea, Cough GI: denies: Nausea, Vomiting, Diarrhea, Hematemesis, Bloody / black stool : reports: Missed period (Patient states she has not had a period for 2 months.). 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 : None HEENT: None Psych: None Musculoskeletal: None - Past Surgical History Past Surgical History: No HEENT: Other - Present Medications Home Medications: Ambulatory Orders Medication Instructions Recorded Confirmed Ferrous Gluconate 324 mg PO BID 30 Days #60 tablet 12/24/20 02/27/21 - Allergies Allergies/Adverse Reactions: Allergies Allergy/AdvReac Type Severity Reaction Status Date / Time Latex, Natural Rubber Allergy Hives Verified 02/06/21 11:41 nickel Allergy Hives Verified 02/06/21 11:41 - Social History Does the pt smoke?: No Smoking Status: Never smoker Does the pt drink ETOH?: No Does the pt have substance abuse?: No - Immunizations Immunizations are current?: Yes - POLST Patient has POLST: No POLST Status: Full Code PD ED PE NORMAL - Vitals Vital signs reviewed: Yes - General General: Alert and oriented X 3, No acute distress, Well developed/nourished, Other (pale appearing) - HEENT HEENT: PERRL, Moist mucous membranes - Neck Neck: Supple, no meningeal sign - Cardiac Cardiac: RRR, Strong equal pulses - Respiratory Respiratory: No respiratory distress, Clear bilaterally - Abdomen Abdomen: Soft, Non tender, Non distended - Back Back: No spinal TTP - Derm Derm: Warm and dry - Extremities Extremities: No edema, No calf tenderness / cord - Neuro Neuro: Alert and oriented X 3, high rigger 2-12 intact, No motor deficit, No sensory deficit, Normal speech - Psych Psych: Normal mood, Normal affect Results - Vitals Vitals: Vital Signs - 24 hr 02/27/21 20:02 Temperature 37.2 C Heart Rate 136 H Respiratory 18 Rate Blood Pressure 111/75 O2 Saturation 100 Oxygen O2 Source Room air - EKG (time done) 1956 Rate: Rate (enter#) (125) Rhythm: Sinus tachycardia Benton: Normal Intervals: Normal NC QRS: Normal Ischemia: Normal ST segments - Labs Labs: Laboratory Tests 02/27/21 02/27/21 02/27/21 20:20 20:20 20:20 WBC 3.7 L RBC 2.04 L Hgb 4.8 L* Hct 16.4 L* MCV 80.4 L MCH 23.5 L MCHC 29.3 L RDW 15.8 H Plt Count 305 MPV 9.2 Neut # (Auto) 2.5 Lymph # (Auto) 0.5 L Licking # (Auto) 0.6 Eos # (Auto) 0.0 Baso # (Auto) 0.0 Absolute Nucleated RBC 0.00 Nucleated RBC % 0.0 Sodium 138 Potassium 3.7 Chloride 104 Carbon Dioxide 26 Anion Gap 8.0 BUN 15 Creatinine 0.5 Estimated GFR (MDRD) 156 Glucose 92 Calcium 8.7 Total Bilirubin 0.5 AST 20 ALT 24 Alkaline Phosphatase 45 Total Protein 5.8 L Albumin 3.4 Globulin 2.4 Albumin/Globulin Ratio 1.4 TSH 1.74 Free T4 0.85 Urine Color Urine Clarity Urine pH Ur Specific Phillips Urine Protein Urine Glucose (UA) Urine Ketones Urine Occult Blood Urine Nitrite Urine Bilirubin Urine Urobilinogen Ur Leukocyte Esterase Ur Microscopic Review Urine Culture Comments Urine HCG, Qual 02/27/21 20:36 WBC RBC Hgb Hct MCV MCH MCHC RDW Plt Count MPV Neut # (Auto) Lymph # (Auto) Licking # (Auto) Eos # (Auto) Baso # (Auto) Absolute Nucleated RBC Nucleated RBC % Sodium Potassium Chloride Carbon Dioxide Anion Gap BUN Creatinine Estimated GFR (MDRD) Glucose Calcium Total Bilirubin AST ALT Alkaline Phosphatase Total Protein Albumin Globulin Albumin/Globulin Ratio TSH Free T4 Urine Color YELLOW Urine Clarity CLEAR Urine pH 6.5 Ur Specific Phillips 1.020 Urine Protein NEGATIVE Urine Glucose (UA) NEGATIVE Urine Ketones NEGATIVE Urine Occult Blood NEGATIVE Urine Nitrite NEGATIVE Urine Bilirubin NEGATIVE Urine Urobilinogen 0.2 (NORMAL) Ur Leukocyte Esterase NEGATIVE Ur Microscopic Review NOT INDICATED Urine Culture Comments NOT INDICATED Urine HCG, Qual NEGATIVE PD MEDICAL DECISION MAKING - ED course Complexity details: reviewed results, re-evaluated patient, considered differential, d/w patient, d/w educational consultant ED course: Patient is a 21-year-old female who presents to the emergency department with recurrent anemia. Last time her hemoglobin was 6. Today it is 4.8. She is symptomatic from this. Will place in observation for transfusion. She has not had an EGD or colonoscopy. Her last CT scan did show some Thickening in her colon. Discussed the case with Dr. Peck, hospitalist who will place in observation for transfusion and further care. Iron studies were sent. Discussed the case with Dr. Nath, general surgery on-call who will consult on the patient in the morning to determine EGD versus EGD and colonoscopy. This document was made in part using voice recognition software. While efforts are made to proofread this document, sound alike and grammatical errors may occur. Departure - Departure Disposition: ED Place in Observation Clinical Impression: Symptomatic anemia, Sinus tachycardia Condition: Stable
[2021-02-27 20:41] LABS: ALBUMIN 3.4 g/dL (3.2-5.5); ALBUMIN/GLOBULIN RATIO 1.4 (1.0-2.2); BILIRUBIN,TOTAL 0.5 mg/dL (0.2-1.0); CALCIUM 8.7 mg/dL (8.5-10.3); CREATININE 0.5 mg/dL (0.4-1.0); POTASSIUM 3.7 mmol/L (3.5-5.0); TOTAL PROTEIN 5.8 g/dL (6.7-8.2)
[2021-02-27 20:44] LABS: BILIRUBIN,URINE NEGATIVE (NEGATIVE); CLARITY,URINE CLEAR (CLEAR); GLUCOSE, URINE (UA) NEGATIVE (NEGATIVE); KETONES,URINE (UA) NEGATIVE (NEGATIVE); LEUKOCYTE ESTERASE, URINE NEGATIVE (NEGATIVE); NITRITE,URINE NEGATIVE (NEGATIVE); OCCULT BLOOD,URINE NEGATIVE (NEGATIVE); PH,URINE 6.5 PH (5.0-7.5); PROTEIN,URINE NEGATIVE (NEGATIVE); UROBILINOGEN,URINE 0.2 (NORMAL) E.U./dL (NORMAL)
[2021-02-27 20:46] LABS: HCG UR QUAL NEGATIVE
[2021-02-27 20:49] LABS: HCT - HEMATOCRIT 16.4 % (37.0-47.0); HGB - HEMOGLOBIN 4.8 g/dL (12.0-16.0)
[2021-02-27 20:57] LABS: THYROID STIMULATING HORMONE 1.74 uIU/mL (0.34-5.60)
[2021-02-27 20:59] LABS: FREE T4 (FREE THYROXINE) 0.85 ng/dL (0.58-1.64)
[2021-02-27] MEDS ORDERED: SODIUM CHLORIDE FLUSH 0.9% 10 ML SYRINGE IVP PRN (21:02)
[2021-02-27] MEDS ORDERED: ACETAMINOPHEN 325 MG TABLET PO PRN (21:08)
[2021-02-27] MEDS ORDERED: oxyCODONE 5 MG TABLET PO PRN (21:08)
[2021-02-27] MEDS ORDERED: ONDANSETRON 4 MG/2 ML VIAL IVP PRN (21:08)
[2021-02-27] MEDS ORDERED: ONDANSETRON ODT 4 MG TABLET TL PRN (21:08)
--- NOTE | 2021-02-27 21:19 | HISTORY & PHYSICAL EXAMINATION ---
Chief Complaint - Chief Complaint Chief Complaint: fast heart rate History of Present Illness - Admitted From Admitted From:: home - History Obtained From Records Reviewed: [facility] History obtained from: Dr. villanueva Exam Limitations: none - History of Present Illness HPI Comment/Other: This 21-year-old female was admitted December 24 with 3 days of dark tarry stool and was feeling lightheaded and fainting. She does not have a family history of ulcers. No previous GI history. She does not take nonsteroidal therapy. She does not smoke. She does not abuse alcohol. She was typed and crossed and transfused 3 units. General surgery consulted and saw her and stated that they would evaluate her in the outpatient setting and plan for endoscopy then. She tells us that she was never contacted by that office and asked that she has not had her endoscopy. Her primary care provider is Kenyetta AZUL. That office did make a referral to [facility] she thinks. But they have not called her. No one has called her. She now returns feeling fatigued with a high heart rate. No chest pain, no edema. No shortness of breath. She was evaluated by Dr. Villanueva who found her temperature to be 37.2. Heart rate 136. Respirations 18. Blood pressure 111/75. 100% on O2 sat. Her repeat hemoglobin today is 4.8. With her December admission she was 6.1 and was discharged at 10.8. She had a follow-up hemoglobin February 06 which was 8.8. Stools are not black and tarry today as they were before. Dr. Zuniga is consulted Dr. Nath. Dr. Nath states that there is scheduling difficulty but he will see her tomorrow after tumor board. From there he will decide if she will be scoped tomorrow and then be able to be discharged. Or do we transfuse her, discharge tomorrow, and he will scope her on March 01. On review of systems the patient has no ENT complaints. She denies pulmonary problems. The only time she had any cough or pulmonary issues was in July 2020 when she was Covid positive. The first time she started feeling she had problems with her heart was when she was fainting with the anemia in December 2020, and today with a fast heart rate. But she denies chest pain, shortness of breath, orthopnea, edema. This is the first time she has had any GI problems. At least objectively. Subjectively she has had at least 4 years of waxing and waning upper abdominal pain. Sometimes it hurts, sometimes it does not. It stays in the central abdomen, nonradiating. Can last for hours and then go away for weeks and then come back. Nothing seems to make it better, nothing seems to make it worse. /CFA history is G0, P0. Her menstrual cycle began around the age of 12 and lasted 3 to 4 days every month. Starting 2 years ago she stopped having her period for unknown reasons. She states that she has lost a lot of weight. Not intentional. She feels like she is eating a normal amount of food. She is not dieting. She has not had her menses for approximately 6 to 8 months now. She does have some joint stiffness in her hands. They will feel tight and occasionally achy. But no other joint complaints in her spine or hips. She denies skin, endocrine, psych, CHEMICAL PROCESS ENGINEER complaints. History - Past Medical History Cardiovascular: reports: None Respiratory: reports: None Neuro: reports: None Endocrine/Autoimmune: reports: None GI: reports: None CFA: reports: None : reports: None HEENT: reports: None Psych: reports: None Musculoskeletal: reports: None MRSA Hx?: No - Past Surgical History HEENT: reports: Other - Family & Social History Family History Comment/Other: Father from an [place] at the age of 53. Mom is alive in her 50s. She does not have high blood pressure, diabetes, cancer, heart attack, GI complaints. No history of Crohn's or ulcerative colitis. No history of polyposis in her or any of her family members. 1 full sibling, 2 half siblings. They are all healthy. No children. Living arrangement: At home Living Situation: With spouse/s.o. Social History Notes: She lives with herPartner and her partner's family in [place] in their home.. She vapes. She also uses marijuana. She does not consume alcohol. She is independent of activities of daily living. - Substance History Use: Uses substance without health or social issues: Other (She vapes a Juul on a daily basis. She is asking to go out right now.) Abuse: Recurrent use of substance despite neg consequences: NONE Dependence: Experiences withdrawal or developed tolerances: NONE - POLST Patient has POLST: No POLST Status: Full Code Meds/Allgy - Home Medications Home Medications: Ambulatory Orders Medication Instructions Recorded Confirmed Ferrous Gluconate 324 mg PO BID 30 Days #60 tablet 12/24/20 02/27/21 - Allergies Allergies/Adverse Reactions: Allergies Allergy/AdvReac Type Severity Reaction Status Date / Time Latex, Natural Rubber Allergy Hives Verified 02/06/21 11:41 nickel Allergy Hives Verified 02/06/21 11:41 Review of Systems - All Other Systems All Other Systems: reports: Reviewed and negative (Please see HPI) Prior Level of Functionality: Completely independent with activities of daily living. No use of durable medical equipment. 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 Exam - Vital Signs Reviewed Vital Signs: Yes Vital Signs: Vital Signs x48h Temp Pulse Resp BP Pulse Ox 02/27/21 20:02 37.2 C 136 H 18 111/75 100 - Physical Exam General Appearance: positive: No acute distress, Alert, Other (Thin, young, white female who is 4 foot 11 inches tall weighs 45.3 kg.) Eyes Bilateral: positive: PERRL, EOMI ENT: positive: Pharynx nml Neck: positive: No JVD. negative: Stiff neck Respiratory: positive: No respiratory distress. negative: Wheezes, Rales, Rhonchi Cardiovascular: positive: Regular rate & rhythm, Systolic murmur. negative: Gallop/S4, Friction rub Peripheral Pulses: positive: 1+ Abdomen: positive: No organomegaly, Nml bowel sounds, No distention, Tenderness (Mild and vague in epigastrium) Skin: positive: Warm, Dry, Pallor Extremities: positive: Full ROM, No pedal edema Neurologic/Psychiatric: positive: Oriented x3, CN's nml (2-12), Motor nml, Sensation nml Conclusion/Plan - Problem List (1) Symptomatic anemia Conclusion/Plan: With sinus tachycardia. Previous black tarry stools in December. No work-up to date to identify where she is bleeding from but the assumption is that of upper GI bleed because of the melena. She has no hematochezia. No use of nonsteroid als.Familial polyposis, nonsteroidal induced ulcers, inflammatory bowel disease are all being entertained as a differential diagnosis. She does not smoke or drink alcohol as such those not felt to be the cause of possible stomach ulcers.She is supposed to be taking iron tablets in the outpatient setting but she says that they make her so nauseated, and then actually induce her central abdominal pain that she cannot tolerate them. Plan: Observation status Type and cross 2 units and transfused 2 units. Recheck hemoglobin then. Aim for hemoglobin above 7. General surgery consult as stated in history of present illness who will see her tomorrow morning after tumor board, then plan for endoscopy either tomorrow or Saturday. If it is Saturday the patient could be discharged and return to the outpatient setting She still needs a GI consult. Her [employer]OOK[employer] has sent her to see [facility] cecile camarena is what I infer from the patient's history. She is [place]. As such I do not think [facility] or the [facility] will see this patient. However I wonder if social work could please investigate. This patient lives in [place] and it [place] get to the [facility]. Since she is unable to tolerate oral iron, I have asked her to contact her [employer] PCP. Ask if she could be sent to the [facility] clinic to get iron infusion therapy. Check anemia panel in the morning for completeness sake. Her iron on March 04, 2018 was 15. 25 on December 23, 2020. TIBC 449/337. Percent saturation 3/7. Transferrin 321/241. There is no B12, LDH, reticulocyte count. (2) Unintentional weight loss Conclusion/Plan: Was enough of the weight loss that it is induced amenorrhea. I have urged her to make sure she completes her GI work-up. If after a second referral she has not heard from anybody to please contact her [employer] and be proactive about making sure she gets seen soon. (3) Sinus tachycardia Conclusion/Plan: EKG confirms this is sinus rhythm. Most likely induced from response to severe anemia. - Lab Results Lab results reviewed: Yes Fish Bones: 02/27/21 20:20 02/27/21 20:20 Core Measures - Anticipated LOS I expect patient to be DC'd or transferred within 96 hours.: Yes - DVT/VTE - Prophylaxis VTE/DVT Device ordered at admit?: Yes
[2021-02-27 21:22] LABS: % IRON SATURATION 3 % (20-50); IRON 14 ug/dL (28-170); TOTAL IRON BINDING CAPACITY 454 ug/dL (250-450); TRANSFERRIN 324 mg/dL (192-382)
[2021-02-27 22:03] LABS: CORONAVIRUS 229E-RESP PCR NOT DETECTED; CORONAVIRUS HKU1-RESP PCR NOT DETECTED; CORONAVIRUS NL63-RESP PCR NOT DETECTED; CORONAVIRUS OC43-RESP PCR NOT DETECTED; HUMAN METAPNEUMOVIRUS NOT DETECTED; RHINOVIRUS/ENTEROVIRUS NOT DETECTED; SARS-CoV-2 -RESP PCR PANEL NOT DETECTED
[2021-02-27 22:04] LABS: B. PARAPERTUSSIS- RESP PCR PAN NOT DETECTED; B. PERTUSSIS- RESP PCR PANEL NOT DETECTED; C. PNEUMONIAE- RESP PCR PANEL NOT DETECTED; INFLUENZA A- RESP PCR PANEL NOT DETECTED; INFLUENZA B - RESP PCR PANEL NOT DETECTED; M. PNEUMONIAE- RESP PCR PANEL NOT DETECTED; PARAINFLUENZA VIRUS 1 NOT DETECTED; PARAINFLUENZA VIRUS 2 NOT DETECTED; PARAINFLUENZA VIRUS 3 NOT DETECTED; PARAINFLUENZA VIRUS 4 NOT DETECTED; RSV- RESP PCR PANEL NOT DETECTED
--- NOTE | 2021-02-27 23:48 | HISTORY & PHYSICAL EXAMINATION ---
Chief Complaint - Chief Complaint Chief Complaint: Feeling tired, weak, and with palpatations History of Present Illness - Admitted From Admitted From:: ED - History Obtained From Records Reviewed: yes History obtained from: pt Exam Limitations: none - History of Present Illness HPI Comment/Other: She has history of anemia. She recently was admitted and given blood for anemia. She was stable and discharged on antacid medication including sucralfate. She states she has been taking these medications. She describes normal bowel habits with daily bm without blood or dark stool. She denies any apparent blood loss from any source. She has not had work up for blood loss/ anemia other than ct scan which shows possible inflammation sigmoid colon. History - Past Medical History Cardiovascular: reports: None Respiratory: reports: None Neuro: reports: None Endocrine/Autoimmune: reports: None GI: reports: None STAFF REPORTER: reports: None : reports: None HEENT: reports: None Psych: reports: None Musculoskeletal: reports: None MRSA Hx?: No - Past Surgical History HEENT: reports: Other - Family & Social History Family History Comment/Other: Father from an [place] at the age of 53. Mom is alive in her 50s. She does not have high blood pressure, diabetes, cancer, heart attack, GI complaints. No history of Crohn's or ulcerative colitis. No history of polyposis in her or any of her family members. 1 full sibling, 2 half siblings. They are all healthy. No children. Living arrangement: At home Living Situation: With spouse/s.o. Social History Notes: She lives with herPartner and her partner's family in [place] in their home.. She vapes. She also uses marijuana. She does not consume alcohol. She is independent of activities of daily living. - Substance History Use: Uses substance without health or social issues: Other (She vapes a Juul on a daily basis. She is asking to go out right now.) Abuse: Recurrent use of substance despite neg consequences: NONE Dependence: Experiences withdrawal or developed tolerances: NONE - POLST Patient has POLST: No POLST Status: Full Code Meds/Allgy - Home Medications Home Medications: Ambulatory Orders Medication Instructions Recorded Confirmed Ferrous Gluconate 324 mg PO BID 30 Days #60 tablet 12/24/20 02/27/21 - Allergies Allergies/Adverse Reactions: Allergies Allergy/AdvReac Type Severity Reaction Status Date / Time Latex, Natural Rubber Allergy Hives Verified 02/06/21 11:41 nickel Allergy Hives Verified 02/06/21 11:41 Review of Systems - Other Findings Other Findings: 10 pt ros as above otherwise unremarkable Exam - Vital Signs Reviewed Vital Signs: Yes Vital Signs: Vital Signs x48h Temp Pulse Resp BP Pulse Ox 02/27/21 23:00 36.7 C 102 H 20 113/51 L 02/27/21 22:50 37.1 C 100 18 103/50 L 02/27/21 21:39 37.0 C 118 H 16 112/76 100 02/27/21 20:02 37.2 C 136 H 18 111/75 100 - Physical Exam General Appearance: positive: Alert Eyes Bilateral: positive: PERRL, EOMI ENT: positive: No signs of dehydration Neck: positive: No JVD Respiratory: positive: No respiratory distress Abdomen: positive: No distention Neurologic/Psychiatric: positive: Oriented x3 Conclusion/Plan - Problem List (1) Anemia Conclusion/Plan: Plan EGD tomorrow and if normal recommend bowel prep tomorrow and colonoscopy w . Qualifiers: Anemia type: unspecified type Qualified Code(s): D64.9 - Anemia, unspecified - Lab Results Lab results reviewed: Yes Fish Bones: 02/27/21 20:20 02/27/21 20:20
[2021-02-28] MEDS: SODIUM CHLORIDE FLUSH 0.9% 10 ML SYRINGE IVP SCH ×2 (00:23→09:25)
[2021-02-28 06:42] LABS: % IRON SATURATION 7 % (20-50); IRON 27 ug/dL (28-170); TOTAL IRON BINDING CAPACITY 406 ug/dL (250-450); TRANSFERRIN 290 mg/dL (192-382)
[2021-02-28 09:03] LABS: HCT - HEMATOCRIT 26.6 % (37.0-47.0); HGB - HEMOGLOBIN 8.4 g/dL (12.0-16.0)
[2021-02-28 09:11] LABS: ABSOLUTE RETICS # AUTO 0.063 10^6/uL (0.020-0.110); RED BLOOD COUNT 3.22 10^6/uL (4.20-5.40); RETICULOCYTE COUNT % (AUTO) 1.94 % (0.5-2.3)
[2021-02-28 09:59] LABS: IRON 19 ug/dL (28-170); TRANSFERRIN 302 mg/dL (192-382)
--- NOTE | 2021-02-28 11:27 | ANESTHESIA ---
Pre-Anesthesia VS, & Labs - Diagnosis anemia - Procedure EGD Vital Signs: Temp Pulse Resp BP Pulse Ox 36.9 C 76 16 101/54 L 100 02/28/21 09:01 02/28/21 09:01 02/28/21 09:01 02/28/21 09:01 02/28/21 09:01 Height: 4 ft 11 in Weight (kg): 39.5 kg Body Mass Index: 17.6 BMI Classification: Underweight - NPO >8 hours - Is Patient ?: No - Lab Results Current Lab Results: Laboratory Tests 02/28/21 08:58: Prolactin 12.86 02/28/21 08:58: Iron 19 L, Transferrin 302 02/28/21 08:58: RBC 3.22 L, Reticulocyte % (Auto) 1.94, Absolute Retic 0.063 02/28/21 08:58: Hgb 8.4 L, Hct 26.6 L 02/28/21 06:08: Lactate Dehydrogenase 92 02/28/21 06:08: Ferritin 1.0 L, Vitamin B12 161 L 02/28/21 06:08: Iron 27 L, TIBC 406, % Saturation 7 L, Transferrin 290 02/27/21 21:07: Blood Type O POSITIVE, Antibody Screen NEGATIVE, Crossmatch IS Only See Detail 02/27/21 20:20: Iron 14 L, TIBC 454 H, % Saturation 3 L, Transferrin 324 02/27/21 20:20: TSH 1.74, Free T4 0.85 02/27/21 20:20: Sodium 138, Potassium 3.7, Chloride 104, Carbon Dioxide 26, Anion Gap 8.0, BUN 15, Creatinine 0.5, Estimated GFR (MDRD) 156, Glucose 92, Calcium 8.7, Total Bilirubin 0.5, AST 20, ALT 24, Alkaline Phosphatase 45, Total Protein 5.8 L, Albumin 3.4, Globulin 2.4, Albumin/Globulin Ratio 1.4 02/27/21 20:20: WBC 3.7 L, RBC 2.04 L, Hgb 4.8 L*, Hct 16.4 L*, MCV 80.4 L, MCH 23.5 L, MCHC 29.3 L, RDW 15.8 H, Plt Count 305, MPV 9.2, Neut # (Auto) 2.5, Lymph # (Auto) 0.5 L, Bee # (Auto) 0.6, Eos # (Auto) 0.0, Baso # (Auto) 0.0, Absolute Nucleated RBC 0.00, Nucleated RBC % 0.0 Fish Bones: 02/28/21 08:58 02/27/21 20:20 Home Medications and Allergies Active Medications Acetaminophen (Acetaminophen 325 Mg Tablet) 650 mg PO Q4HR PRN PRN Reason: Pain 1 to 4 Ondansetron HCl (Ondansetron Odt 4 Mg Tablet) 4 mg TL Q6HR PRN PRN Reason: Nausea / Vomiting Ondansetron HCl (Ondansetron 4 Mg/2 Ml Vial) 4 mg IVP Q6HR PRN PRN Reason: Nausea / Vomiting Oxycodone HCl (Oxycodone 5 Mg Tablet) 10 mg PO Q4HR PRN PRN Reason: Pain 8 to 10 Sodium Chloride (Sodium Chloride Flush 0.9% 10 Ml Syringe) 10 ml IVP PRN PRN PRN Reason: NEEDED PER PROVIDER ORDERS Sodium Chloride (Sodium Chloride Flush 0.9% 10 Ml Syringe) 10 ml IVP 0100,0900,1700 LUCÍA Last Admin: 02/28/21 09:25 Dose: 10 ml Documented by: Allergies/Adverse Reactions: Allergies Allergy/AdvReac Type Severity Reaction Status Date / Time Latex, Natural Rubber Allergy Hives Verified 02/06/21 11:41 nickel Allergy Hives Verified 02/06/21 11:41 Anes History & Medical History - Medical History Cardiovascular: reports: None Pulmonary: reports: None Gastrointestinal: reports: None Urinary: reports: None Neuro: reports: None Musculoskeletal: reports: None Endocrine/Autoimmune: reports: None Blood Disorders: reports: Anemia (severe) Smoking Status: Smoker current status unk - Surgical History Eyes Ears Nose Throat (EENT): reports: Other Exam General: Alert, Oriented x3 Dental: WNL Mouth Opening: Greater than 4 Fingerbreadths Neck Mobility: Normal Mallampati classification: I Respiratory: Lungs clear Cardiovascular: Regular rate, Normal S1, Normal S2 Plan Anesthesia Type: Total IV Consent for Procedure(s) Verified and Reviewed: Yes Code Status: Attempt Resuscitation ASA classification: 3-Severe systemic disease Is this case an emergency?: Yes
[2021-02-28 15:09] VITALS: BP 100/53
--- NOTE | 2021-02-28 15:33 | ANESTHESIA POST OP EVALUATION ---
Anesthesia Post Eval - Post Anesthesia Eval Vitals: Last Vital Signs Temp 36.5 C 02/28/21 15:06 Pulse 88 02/28/21 15:06 Resp 18 02/28/21 15:06 BP 100/53 L 02/28/21 15:06 Pulse Ox 100 02/28/21 15:06 CV Function Including HR & BP: Stable Pain Control: Satisfactory Nausea & Vomiting: Negative Mental Status: Baseline Respiratory Status: Airway Patent Hydration Status: Satisfactory Anesthesia Complications: None
--- NOTE | 2021-02-28 16:17 | Discharge Plan ---
Discharge Plan Problem Reviewed?: Yes Disposition: Home, Self Care Condition: Fair Diet: Soft Activity Restrictions: Additional Comments (No work on and Sat) Shower Restrictions: No Driving Restrictions: Yes (No driving until 03/01/21) Instruction Topics: Anemia Health Concerns: You were in the hospital in Observation status to evaluate your severe anemia and to get blood transfusions. You had an upper endoscopy today and needed IV sedation to undergo that procedure. Because of that you may not drive a vehicle or operate heavy machinery until tomorrow. Please keep the appointment to undergo the colonoscopy on Saturday after having the bowel prep on . Plan of Treatment: As above. Care Goals: Improvement in symptoms and stabilization are the goals. Assessment: Patient understands and is agreeable with the plan. No Smoking: If you smoke, Please STOP! Call for help. Follow-up with: Lida Amezcua ARNP [Primary Care Provider] -
--- NOTE | 2021-02-28 18:53 | DISCHARGE SUMMARY ---
"Discharge Summary Admit Date: 02/27/21 Discharge Date: 02/28/21 Discharging Provider: Dr Cindy Ram Code Status: Attempt Resuscitation Condition at Discharge: Fair Discharge Disposition: 01 Home, Self Care - DIAGNOSES Discharge Diagnoses with Status of Each Condition: 1) Symptomatic anemia - improved 2) Unintentional weight loss - chronic 3) Amenorrhea - chronic 4) Sinus tachycardia - resolved - HPI History of Present Illness: From the admission H&P of Dr Radha Peck: This 21-year-old female was previously admitted December 24 with 3 days of dark tarry stool and was feeling lightheaded and fainting. She does not have a family history of ulcers. No previous GI history. She does not take nonsteroidal therapy. She does not smoke. She does not abuse alcohol. She was typed and crossed and transfused 3 units. General surgery consulted and saw her and stated that they would evaluate her in the outpatient setting and plan for endo scopy then. She tells us that she was never contacted by that office and asked that she has not had her endoscopy. Her primary care provider is Kenyteta AZUL. That office did make a referral to [facility] she thinks. But they have not called her. No one has called her. She now returns feeling fatigued with a high heart rate. No chest pain, no edema. No shortness of breath. She was evaluated by Dr. Garcia who found her temperature to be 37.2. Heart rate 136. Respirations 18. Blood pressure 111/75. 100% on O2 sat. Her repeat hemoglobin today is 4.8. With her December admission she was 6.1 and was discharged at 10.8. She had a follow-up hemoglobin February 06 which was 8.8. Stools are not black and tarry today as they were before. Dr. Zuniga has consulted Dr. Nath (Gen Surgery). Dr. Nath states that there is scheduling difficulty but he will see her tomorrow after tumor board meeting. From there he will decide if she will be scoped tomorrow and then be able to be discharged, or do we transfuse her, discharge tomorrow, and he will scope her on Saturday, March 01. On review of systems the patient has no ENT complaints. She denies pulmonary problems. The only time she had any cough or pulmonary issues was in July 2020 when she was Covid positive. The first time she started feeling she had problems with her heart was when she was fainting with the anemia in December 2020, and today with a fast heart rate. But she denies chest pain, shortness of breath, orthopnea, edema. This is the first time she has had any GI problems. At least objectively. Subjectively she has had at least 4 years of waxing and waning upper abdominal pain. Sometimes it hurts, sometimes it does not. It stays in the central abdomen, nonradiating. Can last for hours and then go away for weeks and then come back. Nothing seems to make it better, nothing seems to make it worse. 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 Her menstrual cycle began around the age of 12 and lasted 3 to 4 days every month. Starting 2 years ago she stopped having her period for unknown reasons. She states that she has lost a lot of weight. Not intentional. She feels like she is eating a normal amount of food. She is not dieting. She has not had her menses for approximately 6 to 8 months now. She does have some joint stiffness in her hands. They will feel tight and occasionally achy. But no other joint complaints in her spine or hips. She denies skin, endocrine, psych, MEAT DRESSER complaints. - CONSULTS | PROCEDURES Consultations: Dr Izabella Byrd (General Surgery) Procedures: EGD on 02/28/21 - HOSPITAL COURSE Hospital Course: 1) Symptomatic anemia - She was transfused 2 U packed red cells, and Hgb improved from 4.8 to 8.4. She underwent EGD that was normal. The plan was to have bowel prep and colonoscopy as an outpatient in 3 days. An excuse from work was provided. 2) Unintentional weight loss - As per Hx and needs PCP follow-up. 3) Amenorrhea - As per Hx and is presumably from weight loss and needs PCP or MEMBERSHIP ADVISOR follow-up. 4) Sinus tachycardia - Related to her marked anemia, and improved with volume replacement. - ALLERGIES Allergies/Adverse Reactions: Allergies Allergy/AdvReac Type Severity Reaction Status Date / Time Latex, Natural Rubber Allergy Hives Verified 03/03/21 12:04 nickel Allergy Hives Verified 03/03/21 12:04 - MEDICATIONS Home Medications: Ambulatory Orders Medication Instructions Recorded Confirmed Ferrous Gluconate 324 mg PO BID 30 Days #60 tablet 12/24/20 03/03/21 - PHYSICAL EXAM AT DISCHARGE General Appearance: positive: No acute distress, Alert, Other (Pale) Eyes Bilateral: positive: Normal inspection, EOMI ENT: positive: ENT inspection nml, No signs of dehydration Neck: positive: Nml inspection, No JVD Respiratory: positive: No respiratory distress Cardiovascular: positive: Regular rate & rhythm Abdomen: positive: No distention Skin: positive: Warm, Dry, Pallor Neurologic/Psychiatric: positive: Oriented x3 (Non-focal) - LABS Result Diagrams: 02/28/21 08:58 02/27/21 20:20 - DIAGNOSTIC IMAGING Diagnostic Imaging Results: Final report reviewed - FOLLOW UP Follow Up: Appointment for and instructions for an outpt colonoscopy to be done on 03/03/21, were provided to the pt and her significant other. - TIME SPENT Time Spent in Discharge (Minutes): 30"
== END 2021-02-28 17:07 | disposition home or self-care (01) ==
LOC: ED 19:52 → MS2 21:02
PROVIDERS: ADMIT Specialist; ATTEND Internal Medicine
PROC: 0DB68ZX Excision of Stomach, Via Natural or Artificial Opening Endoscopic, Diagnostic (ICD-10-PCS; principal; 2021-02-28 14:00)
DX: D62 Acute posthemorrhagic anemia (principal); K29.51 Unspecified chronic gastritis with bleeding; R63.4 Abnormal weight loss; Z68.1 Body mass index [BMI] 19.9 or less, adult; N91.2 Amenorrhea, unspecified; R00.0 Tachycardia, unspecified; Z86.16 Personal history of COVID-19; F17.290 Nicotine dependence, other tobacco product, uncomplicated; Z72.89 Other problems related to lifestyle; T45.4X6A Underdosing of iron and its compounds, initial encounter; Z91.128 Patient's intentional underdosing of medication regimen for other reason; Z20.822 Contact with and (suspected) exposure to COVID-19
CPT/HCPCS: 0202U; 36415; 36430; 43239; 80053; 81003; 81025; 82607; 82728; 83540; 83615; 84146; 84439; 84443; 84466; 85014; 85018; 85025; 85045; 86850; 86900; 86901; 86920; 93005; 99284; 99285; G0378; P9016; 81001; 87086

== ENCOUNTER 2021-03-03 11:37 | Day surgery (SDC) | payer MEDICAID ==
[2021-03-03] MEDS ORDERED: LACTATED RINGERS 1,000 ML IV ONE ×2 (11:44→14:44)
[2021-03-03 12:02] LABS: HCG UR QUAL NEGATIVE
[2021-03-03] MEDS ORDERED: fentaNYL 250 MCG/5 ML VIAL ONE (13:49)
[2021-03-03] MEDS ORDERED: MIDAZOLAM 2 MG/2 ML VIAL ONE ×3 (13:49→14:26)
[2021-03-03 15:58] VITALS: BP 111/68
== END 2021-03-03 11:38 | disposition home or self-care (01) ==
LOC: SDS 11:37
PROVIDERS: ATTEND Surgery
PROC: 0DBP8ZX Excision of Rectum, Via Natural or Artificial Opening Endoscopic, Diagnostic (ICD-10-PCS; 2021-03-03)
PROC: 0DBF8ZX Excision of Right Large Intestine, Via Natural or Artificial Opening Endoscopic, Diagnostic (ICD-10-PCS; 2021-03-03)
PROC: 0DBG8ZX Excision of Left Large Intestine, Via Natural or Artificial Opening Endoscopic, Diagnostic (ICD-10-PCS; 2021-03-03)
PROC: 0DBB8ZX Excision of Ileum, Via Natural or Artificial Opening Endoscopic, Diagnostic (ICD-10-PCS; principal; 2021-03-03 12:30)
DX: D64.9 Anemia, unspecified (principal); F17.290 Nicotine dependence, other tobacco product, uncomplicated
CPT/HCPCS: 45380; 81025; J3010; J7120

== ENCOUNTER 2021-07-28 13:00 | Outpatient (CLI) | payer MEDICAID ==
[2021-07-28 22:44] LABS: CHLAMYDIA TRACHOMATIS DNA NEGATIVE (NEGATIVE); NEISSERIA GONORRHOEAE DNA NEGATIVE (NEGATIVE); TRICHOMONAS VAGINALIS DNA NEGATIVE (NEGATIVE)
== END 2021-07-28 23:59 | disposition home or self-care (01) ==
LOC: LAB.WC 13:00
PROVIDERS: ATTEND Nurse Practitioner Obstetrics & Gynecology
DX: Z11.3 Encounter for screening for infections with a predominantly sexual mode of transmission (principal)
CPT/HCPCS: 87491; 87591; 87661

== ENCOUNTER 2021-08-06 11:40 | Emergency (ER) | payer MEDICAID ==
--- NOTE | 2021-08-06 12:07 | ED Physician Documentation ---
History of Present Illness - Stated complaint Stated Complaint: HIGH HEART RATE - Chief complaint Chief Complaint: Cardiac - Additonal information Additional information: 21 year old female presents to the ED for evaluation of feeling shaky, light headed and dizzy. no sycope. no CP, SOA. she does have a hx of iron deficiency anemia requiring blood transfusion in the past. Patient reports that she drank quite a bit of tequila last night. She did not pass out. She states that for the last few months she has been occasionally finding herself quite anxious and occasionally having panic attacks though that did not feel similar to what she was having this morning. No chest pain, no unilateral leg swelling, no recent immobilization or surgery. No history of DVT or cancer. No hormones Review of Systems Constitutional: denies: Fever, Chills Eyes: reports: Reviewed and negative Ears: reports: Reviewed and negative Nose: reports: Reviewed and negative Throat: reports: Reviewed and negative Cardiac: reports: Palpitations. 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 : None HEENT: None Psych: None Musculoskeletal: None - Past Surgical History Past Surgical History: No General: EGD HEENT: Other - Present Medications Home Medications: Ambulatory Orders Medication Instructions Recorded Confirmed Ferrous Gluconate 324 mg PO BID 30 Days #60 tablet 12/24/20 03/03/21 - Allergies Allergies/Adverse Reactions: Allergies Allergy/AdvReac Type Severity Reaction Status Date / Time Latex, Natural Rubber Allergy Hives Verified 08/06/21 12:02 nickel Allergy Hives Verified 08/06/21 12:02 - Social History Does the pt smoke?: No Smoking Status: Smoker current status unk Does the pt drink ETOH?: No Does the pt have substance abuse?: No - Immunizations Immunizations are current?: Yes - POLST Patient has POLST: No POLST Status: Full Code PD ED PE NORMAL - General General: Alert and oriented X 3, No acute distress - HEENT HEENT: PERRL - Neck Neck: Supple, no meningeal sign - Cardiac Cardiac: RRR, No murmur - Respiratory Respiratory: Clear bilaterally - Abdomen Abdomen: Normal bowel sounds - Back Back: No CVA TTP, No spinal TTP - Derm Derm: Normal color, No rash - Extremities Extremities: No deformity - Neuro Neuro: Alert and oriented X 3 Eye Opening: Spontaneous Motor: Obeys Commands Verbal: Oriented GCS Score: 15 Results - Vitals Vitals: Vital Signs - 24 hr 08/06/21 12:01 Temperature 36.5 C Heart Rate 84 Respiratory 18 Rate Blood Pressure 122/73 O2 Saturation 98 Oxygen O2 Source Room air - EKG (time done) 1202 Rate: Rate (enter#) (86) Rhythm: NSR [place]: Normal Intervals: Normal [place] QRS: Normal Ischemia: Normal ST segments Compare to prior EKG: Old EKG unavailable Computer interpretation: Agree with computer - Labs Labs: Laboratory Tests 08/06/21 08/06/21 08/06/21 12:10 12:10 12:10 WBC 6.0 RBC 4.93 Hgb 11.6 L Hct 38.1 MCV 77.3 L MCH 23.5 L MCHC 30.4 L RDW 17.9 H Plt Count 425 MPV 8.8 Neut # (Auto) 4.7 Lymph # (Auto) 0.5 L [place] # (Auto) 0.6 Eos # (Auto) 0.1 Baso # (Auto) 0.1 Absolute Nucleated RBC 0.00 Nucleated RBC % 0.0 Sodium 139 Potassium 3.9 Chloride 105 Carbon Dioxide 25 Anion Gap 9.0 BUN 16 Creatinine 0.5 Estimated GFR (MDRD) 156 Glucose 89 Calcium 9.2 Total Bilirubin 1.1 H AST 23 ALT 19 Alkaline Phosphatase 51 Troponin I High Sens < 2.3 L Total Protein 6.8 Albumin 3.8 Globulin 3.0 Albumin/Globulin Ratio 1.3 Lipase 40 - Rads (name of study) CXR Radiology: Final report received (No acute cardiopulmonary process) PD MEDICAL DECISION MAKING - ED course Complexity details: reviewed results, re-evaluated patient, considered differential, d/w patient ED course: 21-year-old female presents emergency department for evaluation of waking up this morning feeling faint and lightheaded and dizzy. She has a history of fairly significant iron deficiency anemia and was concerned that this could be the cause. She did not have any chest pain, shortness of air or syncope. Her screening EKG is nonischemic and sinus. Her hemoglobin is now 11.8 which is markedly improved from the past. Electrolytes without acute findings. In disc ussion with the patient she admits to drinking heavily last night. We discussed that she may be somewhat hung over which would simply cause her symptoms. Her orthostatic vital signs were unremarkable and the chest x-ray is without acute focal findings. Patient is PERC negative I encouraged patient to continue close follow-up with her primary care provider. Though no longer anemic she would still benefit from a diet high in iron. Emergent return precautions were discussed for failure of symptoms to improve. Departure - Departure Disposition: Home, Self Care Clinical Impression: Palpitations, Hangover without complication Condition: Stable Record reviewed to determine appropriate education?: Yes Comments: Telma you were seen in the emergency department today for feeling faint, lightheaded and dizzy. You do have a history of iron deficiency anemia. Your screening EKG, chest x-ray and labs including your CBC are all essentially normal. I suspected that the cause of your symptoms is simply being somewhat hung over from excessive alcohol use last night. I recommend that you stay well-hydrated today and avoid drinking for the next few days. I encourage you to follow close with your primary care doctor to discuss your history of anemia. It is important that you eat a diet rich in iron foods as you cannot tolerate taking oral supplements. If any point develop chest pain, shortness of air, have any fainting episodes and please return immediately to the ER for a second evaluation.
[2021-08-06 12:21] LABS: BASOPHILS # (AUTO) 0.1 10^3/uL (0.0-0.1); BASOPHILS % (AUTO) 0.8 %; EOSINOPHILS # (AUTO) 0.1 10^3/uL (0.0-0.7); EOSINOPHILS % (AUTO) 1.5 %; HCT - HEMATOCRIT 38.1 % (37.0-47.0); HGB - HEMOGLOBIN 11.6 g/dL (12.0-16.0); LYMPHOCYTES # (AUTO) 0.5 10^3/uL (1.5-3.5); LYMPHOCYTES % (AUTO) 8.6 %; MEAN CORPUSCULAR HEMOGLOBIN 23.5 pg (27.0-31.0); MEAN CORPUSCULAR HGB CONC 30.4 g/dL (32.0-36.0); MEAN CORPUSCULAR VOLUME 77.3 fL (81.0-99.0); MEAN PLATELET VOLUME 8.8 fL (7.9-10.8); MONOCYTES # (AUTO) 0.6 10^3/uL (0.0-1.0); MONOCYTES % (AUTO) 10.3 %; NEUTROPHILS # (AUTO) 4.7 10^3/uL (1.5-6.6); NEUTROPHILS % (AUTO) 78.3 %; PLT - PLATELET COUNT 425 10^3/uL (130-450); RED BLOOD COUNT 4.93 10^6/uL (4.20-5.40); RED CELL DISTRIBUTION WIDTH 17.9 % (12.0-15.0)
[2021-08-06 12:41] LABS: ALBUMIN 3.8 g/dL (3.2-5.5); ALBUMIN/GLOBULIN RATIO 1.3 (1.0-2.2); BILIRUBIN,TOTAL 1.1 mg/dL (0.2-1.0); CALCIUM 9.2 mg/dL (8.5-10.3); CREATININE 0.5 mg/dL (0.4-1.0); POTASSIUM 3.9 mmol/L (3.5-5.0); TOTAL PROTEIN 6.8 g/dL (6.7-8.2)
[2021-08-06 12:45] LABS: HCG,QUALITATIVE BLOOD NEGATIVE
--- NOTE | 2021-08-06 13:07 | XRAY Report ---
PROCEDURE: Chest 1 View X-Ray INDICATIONS: tachycardia TECHNIQUE: One view of the chest was acquired. COMPARISON: None FINDINGS: Surgical changes and devices: None. Lungs and pleura: No pleural effusions or pneumothorax. Lungs are clear. Mediastinum: Mediastinal contours appear normal. Heart size is normal. Bones and chest wall: No suspicious bony lesions. Overlying soft tissues appear unremarkable. IMPRESSION: No acute cardiopulmonary abnormality. Reviewed by: Kip Stringer on 08/06/2021 12:05 PM [facility] Approved by: Kip Stringer on 08/06/2021 12:05 PM [facility] Station ID: [id number]
[2021-08-06 13:10] VITALS: BP 109/69
== END 2021-08-06 13:16 | disposition home or self-care (01) ==
LOC: ED 11:40
DX: R42 Dizziness and giddiness (principal); R00.2 Palpitations; F10.129 Alcohol abuse with intoxication, unspecified
CPT/HCPCS: 36415; 80053; 83690; 84484; 84703; 85025; 86850; 86900; 86901; 93005; 99283; 99284

== ENCOUNTER 2021-12-07 10:27 | Outpatient (CLI) | payer MEDICAID ==
[2021-12-07 10:59] LABS: BILIRUBIN,URINE NEGATIVE (NEGATIVE); GLUCOSE, URINE (UA) NEGATIVE (NEGATIVE); KETONES,URINE (UA) TRACE mg/dL (NEGATIVE); LEUKOCYTE ESTERASE, URINE NEGATIVE (NEGATIVE); NITRITE,URINE POSITIVE (NEGATIVE); OCCULT BLOOD,URINE LARGE (NEGATIVE); PROTEIN,URINE 30 mg/dL (NEGATIVE); UROBILINOGEN,URINE 0.2 (NORMAL) E.U./dL (NORMAL)
[2021-12-07 11:00] LABS: CLARITY,URINE CLOUDY (CLEAR)
[2021-12-07 11:11] LABS: RBC,URINE TNTC /HPF (0-5)
[2021-12-07 11:12] LABS: BACTERIA,URINE Few /HPF (None Seen); SQUAMOUS EPITHELIAL CELL,UR MOD Squamous (<= Few)
== END 2021-12-07 10:28 | disposition home or self-care (01) ==
LOC: LAB.R 10:27
PROVIDERS: ATTEND Obstetrics & Gynecology
DX: R30.0 Dysuria (principal)
CPT/HCPCS: 81001; 87086

== ENCOUNTER 2021-12-09 12:11 | Outpatient (CLI) | payer MEDICAID | END 2021-12-09 23:59 | disposition home or self-care (01) | LOC: LAB 12:11 | PROVIDERS: ATTEND Obstetrics & Gynecology | DX: R30.0 Dysuria (principal) | CPT/HCPCS: 87077; 87086; 87181 ==

== ENCOUNTER 2022-05-21 09:42 | Emergency (ER) | payer MEDICAID ==
[2022-05-21 09:56] VITALS: BP 122/64
--- NOTE | 2022-05-21 10:07 | ED Physician Documentation ---
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 No: Fall, Twist Where injury occurred: Work Timing - onset: How many days ago (4) Timing - duration: Days (4) Timing - details: Gradual onset, Still present Worsened by: Moving, Palpating Associated symptoms: No: Weakness, Numbness, Swelling Similar symptoms before: Has not had sx before Recently seen: Not recently seen Review of Systems Constitutional: denies: Fever, Chills Skin: denies: Rash, Lesions Neurologic: denies: Focal weakness, Numbness PD PAST MEDICAL HISTORY - Past Medical History Cardiovascular: None Respiratory: None Neuro: None Endocrine/Autoimmune: None GI: None TONSORIAL ARTIST: None : None HEENT: None Psych: None Musculoskeletal: None - Past Surgical History Past Surgical History: No General: EGD HEENT: Other - Present Medications Home Medications: Ambulatory Orders Medication Instructions Recorded Confirmed Ferrous Gluconate 324 mg PO BID 30 Days #60 tablet 12/24/20 03/03/21 - Allergies Allergies/Adverse Reactions: Allergies Allergy/AdvReac Type Severity Reaction Status Date / Time Latex, Natural Rubber Allergy Hives Verified 05/21/22 09:56 nickel Allergy Hives Verified 05/21/22 09:56 - Social History Does the pt smoke?: No Smoking Status: Smoker current status unk Does the pt drink ETOH?: No Does the pt have substance abuse?: No - Immunizations Immunizations are current?: Yes - POLST Patient has POLST: No POLST Status: Full Code PD ED PE NORMAL - Vitals Vital signs reviewed: Yes - General General: Alert and oriented X 3, No acute distress, Well developed/nourished - Neck Neck: Supple, no meningeal sign, No bony TTP, No adenopathy, Other (some tenderness of right mid trapezius muscle and right suprascapular area. Right shoulder ROM has pain in scapular area with internal rotation, abduction, and extension suggesting some rotator cuff process. ) - Derm Derm: Normal color, Warm and dry, No rash - Neuro Neuro: No motor deficit, No sensory deficit Results - Vitals Vitals: Oxygen O2 Source Room air PD MEDICAL DECISION MAKING - ED course Complexity details: considered differential (tender in suprascapular to trapezius area with pain on some rotator cuff motions. ), d/w patient Departure - Departure Disposition: 01 Home, Self Care Clinical Impression: Pain of right scapula, Right rotator cuff tendonitis Condition: Stable Record reviewed to determine appropriate education?: Yes Comments: This sounds likely to be irritation of one of the rotator cuff muscles or the trapezius muscle. I would suggest light to minimal use of the right shoulder for the next 4 to 5 days. Use the sling periodically to help reduce motion and rest the shoulder muscles. Gentle range of motion with the arm that was good periodically. Heat or cold and massage as feels better are all good things to try. 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 Add Tylenol every 4-6 hours if needed for pain. Recheck if not improving well over the next week. Follow-up with your primary care in 2 weeks as scheduled or sooner if they are able to accommodate you if its not better. If you are feeling better over the next 4 to 5 days, then resuming normal activity could be okay. Forms: Activity restrictions Discharge Date/Time: 05/21/22 10:31
[2022-05-21] MEDS ORDERED: NAPROXEN 250 MG TABLET PO STA (10:21)
== END 2022-05-21 10:31 | disposition home or self-care (01) ==
LOC: ED 09:42
DX: M75.101 Unspecified rotator cuff tear or rupture of right shoulder, not specified as traumatic (principal)
CPT/HCPCS: 99282; A9270

== ENCOUNTER 2023-03-03 10:42 | Emergency (ER) | payer MEDICAID ==
[2023-03-03 11:25] LABS: BASOPHILS # (AUTO) 0.1 10^3/uL (0.0-0.1); EOSINOPHILS # (AUTO) 0.1 10^3/uL (0.0-0.7); HCT - HEMATOCRIT 38.6 % (37.0-47.0); HGB - HEMOGLOBIN 13.5 g/dL (12.0-16.0); LYMPHOCYTES # (AUTO) 1.1 10^3/uL (1.5-3.5); LYMPHOCYTES % (AUTO) 20.7 %; MEAN CORPUSCULAR HEMOGLOBIN 29.9 pg (27.0-31.0); MEAN CORPUSCULAR VOLUME 85.4 fL (81.0-99.0); MONOCYTES # (AUTO) 0.5 10^3/uL (0.0-1.0); MONOCYTES % (AUTO) 10.2 %; NEUTROPHILS # (AUTO) 3.4 10^3/uL (1.5-6.6); NEUTROPHILS % (AUTO) 66.7 %; PLT - PLATELET COUNT 344 10^3/uL (130-450); RED BLOOD COUNT 4.52 10^6/uL (4.20-5.40); RED CELL DISTRIBUTION WIDTH 12.4 % (12.0-15.0); WHITE BLOOD COUNT 5.1 x10^3/uL (4.8-10.8)
--- NOTE | 2023-03-03 11:25 | ED Physician Documentation ---
History of Present Illness - Stated complaint Stated Complaint: LIGHT HEAD,VOMIT - Chief complaint Chief Complaint: Neuro - Additonal information Additional information: 23-year-old female presents emergency department for evaluation of feeling lightheaded and dizzy. Symptoms began when she showed up to work. She had a sensation that she was going to pass out though she did not. She sat down and then laid down which improved the symptoms. Denies possibility of , she is on Depo. Takes no prescribed medications. Denies drugs or alcohol. Denies chest pain or shortness of air. No history of similar. Review of Systems Constitutional: denies: Fever, Chills Throat: reports: Reviewed and negative Cardiac: reports: Other (light headed). 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 WET: Ovarian cysts : None HEENT: None Psych: None Musculoskeletal: None Derm: None - Past Surgical History Past Surgical History: No General: EGD HEENT: Other - Present Medications Home Medications: Ambulatory Orders Medication Instructions Recorded Confirmed Medroxyprogesterone Acetate 150 mg IM Q90D 03/03/23 03/03/23 [Depo-Provera] - Allergies Allergies/Adverse Reactions: Allergies Allergy/AdvReac Type Severity Reaction Status Date / Time Latex, Natural Rubber Allergy Hives Verified 03/03/23 10:52 nickel Allergy Hives Verified 03/03/23 10:52 - Social History Does the pt smoke?: No Smoking Status: Never smoker Does the pt drink ETOH?: No Does the pt have substance abuse?: No - Immunizations Immunizations are current?: Yes - POLST Patient has POLST: No POLST Status: Full Code PD ED PE NORMAL - General General: Alert and oriented X 3, No acute distress, Well developed/nourished - HEENT HEENT: PERRL - Neck Neck: Supple, no meningeal sign, No adenopathy - Cardiac Cardiac: RRR, No murmur - Respiratory Respiratory: No respiratory distress - Abdomen Abdomen: Normal bowel sounds, Soft, Non tender - Back Back: No CVA TTP, No spinal TTP - Derm Derm: Normal color, Warm and dry, No rash - Extremities Extremities: No deformity, No tenderness to palpate - Neuro Neuro: Alert and oriented X 3, integrity manager 2-12 intact Eye Opening: Spontaneous Motor: Obeys Commands Verbal: Oriented GCS Score: 15 - Psych Psych: Normal mood Results - Vitals Vitals: Vital Signs - 24 hr 03/03/23 03/03/23 03/03/23 10:53 11:18 11:30 Temperature 36.3 C L Heart Rate 68 90 Heart Rate [ 64 Sitting] Heart Rate [ 66 Standing] Heart Rate [ 65 Supine] Respiratory 16 14 Rate Blood Pressure 119/62 120/67 Blood Pressure 117/78 [Sitting] Blood Pressure 117/81 H [Standing] Blood Pressure 119/73 [Supine] O2 Saturation 100 100 03/03/23 12:28 Temperature Heart Rate 59 L Heart Rate [ Sitting] Heart Rate [ Standing] Heart Rate [ Supine] Respiratory 20 Rate Blood Pressure 141/76 H Blood Pressure [Sitting] Blood Pressure [Standing] Blood Pressure [Supine] O2 Saturation 98 Oxygen O2 Source Room air - EKG (time done) 1119 EKG releavant findings:: EKG personally interpreted by author of this note. Relevant findings are: Rate: Rate (enter#) (62) Rhythm: NSR [place]: Normal Intervals: Normal [place] QRS: Normal Ischemia: Normal ST segments Compare to prior EKG: Old EKG unavailable Computer interpretation: Agree with computer - Labs Labs: Laboratory Tests 03/03/23 03/03/23 03/03/23 11:09 11:15 11:15 WBC 5.1 RBC 4.52 Hgb 13.5 Hct 38.6 MCV 85.4 MCH 29.9 MCHC 35.0 RDW 12.4 Plt Count 344 MPV 10.0 Neut # (Auto) 3.4 Lymph # (Auto) 1.1 L [place] # (Auto) 0.5 Eos # (Auto) 0.1 Baso # (Auto) 0.1 Absolute Nucleated RBC 0.00 Nucleated RBC % 0.0 Sodium 139 Potassium 3.4 L Chloride 109 Carbon Dioxide 22 Anion Gap 8.0 BUN 10 Creatinine 0.8 Estimated GFR (MDRD) 89 Glucose 112 H Calcium 9.2 Total Bilirubin 0.9 AST 20 ALT 18 Alkaline Phosphatase 56 Total Protein 7.6 Albumin 4.5 Globulin 3.1 Albumin/Globulin Ratio 1.5 Lipase 33 Urine Color YELLOW Urine Clarity CLEAR Urine pH 5.5 Ur Specific [place] >=1.030 H Urine Protein NEGATIVE Urine Glucose (UA) NEGATIVE Urine Ketones 15 H Urine Occult Blood NEGATIVE Urine Nitrite NEGATIVE Urine Bilirubin NEGATIVE Urine Urobilinogen 0.2 (NORMAL) Ur Leukocyte Esterase NEGATIVE Ur Microscopic Review NOT INDICATED Urine Culture Comments NOT INDICATED Urine HCG, Qual NEGATIVE - Rads (name of study) cxr Relevant Findings:: EMP independent interpretation of test (No acute cardiopulmonary process) PD Medical Decision Making - ED course Complexity details: reviewed results, re-evaluated patient, considered differential, d/w patient ED course: 23 of female with no pertinent past medical history presents emergency department for evaluation and near syncope. Occurred this morning when she was at her job. She has had no fevers. Denies chest pain or shortness of air. On presentation to the emergency department she is alert and well-appearing. No focal deficits were noted. We did obtain orthostatic blood pressures which showed no orthostatic vital sign changes. She was without fever. I did obtain CBC, electrolytes and urinalysis. Patient is not . No anemia. No worrisome electrolyte derangement. Her EKG is sinus rhythm without electrical conduction abnormality. While here on the monitor in the emergency department she has been without any worrisome ectopy, arrhythmia or pauses. She has been seen to ambulate easily in the hallways without any assistance needed. Chest x- ray was negative for pneumonia, pneumothorax or pleural effusion. Patient is PERC negative. Respiratory PCR panel is pending though clinically patient has no signs of a viral URI. At this time is not clear what the cause of the near syncope is. She is advised to follow closely with her PCP. May benefit from a Holter monitor. The usual emergent return precautions for worsening symptoms was discussed. Departure - Departure Disposition: 01 Home, Self Care Clinical Impression: Near syncope Condition: Stable Record reviewed to determine appropriate education?: Yes Instructions: ED Near Syncope Unkn Comments: You are seen today in the emergency department because you have been feeling lightheaded and felt as though you are going to pass out. Here in the ER your labs were essentially normal without any worrisome findings. Your chest x-ray was also normal without any findings suggest pneumonia, pneumothorax or pleural effusion. Your EKG was also normal and showed no electrical conduction abnormalities. We did check your orthostatic vital signs and these were also normal. At this time its not clear what the cause of your near syncope is. I recommend you follow closely with your primary care doctor. You may benefit from referral for a Holter monitor where you would wear a patch on your chest for several days to a few weeks to look for any abnormal cardiac activity. A respiratory PCR panel is pending. You can follow this up on the [facility] portal. Return immediately to the ER if you develop any sudden severe symptoms, have chest pain fainting or severe shortness of air.
--- NOTE | 2023-03-03 11:25 | XRAY Report ---
PROCEDURE: Chest 1 View X-Ray INDICATIONS: Chest Pain TECHNIQUE: One view of the chest was acquired. COMPARISON: 08/06/2021. FINDINGS: Surgical changes and devices: None. Lungs and pleura: No pleural effusions or pneumothorax. Lungs are clear. Mediastinum: Mediastinal contours appear normal. Heart size is normal. Bones and chest wall: No suspicious bony lesions. Overlying soft tissues appear unremarkable. IMPRESSION: No acute cardiopulmonary process. Reviewed by: Elgin Amador MD on 03/03/2023 11:24 AM PDT Approved by: Elgin Amador MD on 03/03/2023 11:24 AM PDT Station ID: [id number]
[2023-03-03 11:26] LABS: BILIRUBIN,URINE NEGATIVE (NEGATIVE); GLUCOSE, URINE (UA) NEGATIVE (NEGATIVE); KETONES,URINE (UA) 15 mg/dL (NEGATIVE); LEUKOCYTE ESTERASE, URINE NEGATIVE (NEGATIVE); NITRITE,URINE NEGATIVE (NEGATIVE); OCCULT BLOOD,URINE NEGATIVE (NEGATIVE); PH,URINE 5.5 PH (5.0-7.5); PROTEIN,URINE NEGATIVE (NEGATIVE); UROBILINOGEN,URINE 0.2 (NORMAL) E.U./dL (NORMAL)
[2023-03-03 11:28] LABS: CLARITY,URINE CLEAR (CLEAR); HCG UR QUAL NEGATIVE
[2023-03-03 11:38] LABS: ALBUMIN 4.5 g/dL (3.2-5.5); ALBUMIN/GLOBULIN RATIO 1.5 (1.0-2.2); BILIRUBIN,TOTAL 0.9 mg/dL (0.2-1.0); CALCIUM 9.2 mg/dL (8.5-10.3); CREATININE 0.8 mg/dL (0.4-1.0); POTASSIUM 3.4 mmol/L (3.5-5.0); TOTAL PROTEIN 7.6 g/dL (6.7-8.2)
[2023-03-03] MEDS: SODIUM CHLORIDE 0.9% 1,000 ML IV STA (11:41)
[2023-03-03 13:03] VITALS: BP 131/79
[2023-03-03 13:13] LABS: B. PARAPERTUSSIS- RESP PCR PAN NOT DETECTED; B. PERTUSSIS- RESP PCR PANEL NOT DETECTED; C. PNEUMONIAE- RESP PCR PANEL NOT DETECTED; CORONAVIRUS 229E-RESP PCR NOT DETECTED; CORONAVIRUS HKU1-RESP PCR NOT DETECTED; CORONAVIRUS NL63-RESP PCR NOT DETECTED; CORONAVIRUS OC43-RESP PCR NOT DETECTED; HUMAN METAPNEUMOVIRUS NOT DETECTED; INFLUENZA A- RESP PCR PANEL NOT DETECTED; INFLUENZA B - RESP PCR PANEL NOT DETECTED; M. PNEUMONIAE- RESP PCR PANEL NOT DETECTED; PARAINFLUENZA VIRUS 1 NOT DETECTED; PARAINFLUENZA VIRUS 2 NOT DETECTED; PARAINFLUENZA VIRUS 3 NOT DETECTED; PARAINFLUENZA VIRUS 4 NOT DETECTED; RHINOVIRUS/ENTEROVIRUS NOT DETECTED; RSV- RESP PCR PANEL NOT DETECTED; SARS-CoV-2 -RESP PCR PANEL NOT DETECTED
== END 2023-03-03 13:02 | disposition home or self-care (01) ==
LOC: ED 10:42
DX: R55 Syncope and collapse (principal); Z20.822 Contact with and (suspected) exposure to COVID-19
CPT/HCPCS: 36415; 80053; 81001; 81003; 81025; 83690; 85025; 87086; 87633; 93005; 99283; 99284

== ENCOUNTER 2023-10-01 08:00 | Outpatient (CLI) | payer MEDICAID ==
[2023-10-01 23:13] LABS: CHLAMYDIA TRACHOMATIS DNA NEGATIVE (NEGATIVE); NEISSERIA GONORRHOEAE DNA NEGATIVE (NEGATIVE); TRICHOMONAS VAGINALIS DNA NEGATIVE (NEGATIVE)
== END 2023-10-01 23:59 | disposition home or self-care (01) ==
LOC: LAB.WC 08:00
PROVIDERS: ATTEND Nurse Practitioner
DX: Z11.3 Encounter for screening for infections with a predominantly sexual mode of transmission (principal)
CPT/HCPCS: 87491; 87591; 87661